=== PATIENT | female | born 1950 | race Caucasian/White ===

== ENCOUNTER → 2016-11-15 | Outpatient (CLI) | payer OTHER ==
--- NOTE | 2016-11-15 14:51 | DIAGNOSTIC IMAGING REPORT ---
LEFT KNEE 2 VIEWS CLINICAL HISTORY: Left knee pain COMPARISON: None. DISCUSSION: No acute fractures are visualized. There are moderate osteoarthritic changes. There are dorsal patellar spurs. IMPRESSION: 3 compartment osteoarthritic change. No acute fractures. No destructive lesions are visualized. Electronically signed by: Chip Ling M.D. 11/15/2016 2:50 PM Dictated Date/Time: 11/15/2016 2:49 PM
--- NOTE | 2016-11-15 14:53 | DIAGNOSTIC IMAGING REPORT ---
RIGHT KNEE 2 VIEWS CLINICAL HISTORY: Right knee pain COMPARISON: None. DISCUSSION: There are moderate osteoarthritic changes. There are small dorsal patellar spurs. There is a small joint effusion. There are no acute fractures. No destructive lesions are evident. IMPRESSION: 3 compartment osteoarthritic change. Small joint effusion. No acute fractures. Electronically signed by: Chip Ling M.D. 11/15/2016 2:52 PM Dictated Date/Time: 11/15/2016 2:51 PM
== END | disposition home or self-care (01) ==
LOC: C.RAD1850 14:34
PROVIDERS: ATTEND Family Medicine
DX: M25.561 Pain in right knee (principal)

== ENCOUNTER → 2017-06-10 | Outpatient (CLI) | payer OTHER ==
--- NOTE | 2017-06-10 10:37 | DIAGNOSTIC IMAGING REPORT ---
LEFT HEEL 2 VIEWS CLINICAL HISTORY: Left heel pain. FINDINGS: AP and lateral views of the left heel are obtained. No prior studies are available for comparison at the time of dictation. The skeletal structures are osteopenic. No calcaneal fracture is seen. The ankle joint is grossly intact. A large dorsal calcaneal enthesophyte is observed. There is a tiny plantar calcaneal enthesophyte. Mild soft tissue thickening suggested along the course of the Achilles tendon. IMPRESSION: 1. Osteopenia with no acute bony abnormality identified in the left heel. 2. There is a large dorsal calcaneal enthesophyte. Mild thickening is suggested along the course of the Achilles tendon. Correlate clinically for evidence of Achilles paratenonitis. 3. There is a tiny plantar calcaneal enthesophyte. Electronically signed by: Stone Mejia M.D. 06/10/2017 10:36 AM Dictated Date/Time: 06/10/2017 10:34 AM
== END | disposition home or self-care (01) ==
LOC: C.RAD1850 10:22
PROVIDERS: ATTEND Physician Assistant
DX: M79.672 Pain in left foot (principal); M85.872 Other specified disorders of bone density and structure, left ankle and foot

== ENCOUNTER 2018-12-26 09:44 | Inpatient (IN) ==
--- NOTE | 2018-12-08 10:56 | Anesthesiology Consultation ---
Date of Service December 08, 2018 Assessment & Plan (1) Encounter for pre-operative examination: Chart Review Chart Review: Acceptable Risk for Surgery and Patient seen in Pre Admission Testing Teaching & Discussion Pre-Anesthesia Teaching/Discussion Notes: Instructed NPO after midnight before surgery,except medications with 15 cc of water. Medication instructions provided according to the PAT guidelines. History Surgery Operation Date: 12/26/18 12:30 Proposed Procedures p Right Total Knee Replacement - Tod Burden MD Height/Weight Height: 5 ft 6 in Weight: 98.7 kg Allergies Allergy/AdvReac Type Severity Reaction Status Date / Time sulfamethoxazole Allergy Intermediate Hives Verified 12/08/18 08:01 [From Bactrim] trimethoprim [From Bactrim] Allergy Intermediate Hives Verified 12/08/18 08:01 Medications Home Medications Medication Instructions Recorded Confirmed Last Taken atorvastatin [Lipitor] 40 mg PO HS 12/08/18 12/08/18 Unknown cholecalciferol (vitamin D3) 5,000 unit PO QAM 12/08/18 12/08/18 Unknown [Vitamin D3] dexlansoprazole [Dexilant] 60 mg PO QAM 12/08/18 12/08/18 Unknown enalapril maleate 10 mg PO QAM 12/08/18 12/08/18 Unknown meloxicam 15 mg PO QAM 12/08/18 12/08/18 Unknown ranitidine HCl 300 mg PO HS 12/08/18 12/08/18 Unknown sertraline 100 mg PO HS 12/08/18 12/08/18 Unknown Past Medical History Medical History Depression Endometriosis GERD (gastroesophageal reflux disease) CONTROLLED Hyperlipidemia Hypertension Obesity Osteoarthritis Sleep apnea CPAP Past Family History Family History Mother Family history of diabetes mellitus Past Surgical History Surgical History History of bilateral tubal ligation History of colonoscopy History of dilatation and curettage History of esophagogastroduodenoscopy (EGD) History of laparoscopy History of total abdominal hysterectomy and bilateral salpingo-oophorectomy Past Anesthesia History No Hx of Anesthesia Complications and No Family Hx of Anesthesia Complications History of PONV No Motion Sickness Screening History of Motion Sickness: Yes (RARE) Social History Smoking Status: Never smoker Do You Dip or Chew Tobacco: No Hx Alcohol Use: No Hx Substance Use: No substance use type: does not use Exercise / Class Metabolic Activity II 4-5 Yardwork/Stairs/Walk up hill Review of Systems Patient denies chest pain, shortness of breath, dyspnea on exertion, cough, wheezing, palpitations. Physical Exam Vital Signs VITALS B 150/83P P 71 TEMP 98.3 SP02 96%RA RESP 16 PHYSICAL Full neck and c-spine range of motion. Full TMJ range of motion. TMD 3 finger breaths Mallampati Score 2 Dentition: intact, crowns on molars Lungs: clear throughout to auscultation Cardiac: regular rate and rhythm, I/ systolic in LUSB Spine: normal Carotid arteries: negative bruit Extremities: no edema Testing Electrocardiogram Date: 12/08/18 Findings: + NSR @ (65) Chest X-Ray Date: 12/08/18 Findings: + NAD Laboratory Results 12/08/18 11:12 12/08/18 11:11 Blood Type A Negative 12/08/18 11:12 Antibody Screen NEGATIVE 12/08/18 11:12 PT 10.3 Seconds (9.0-12.0) 12/08/18 11:12 INR 1.0 (0.9-1.1) 12/08/18 11:12 APTT 23.9 Seconds (21.0-31.0) 12/08/18 11:12
--- NOTE | 2018-12-08 11:08 | PAT Medication Instructions ---
Medication Instructions Date of Service December 08, 2018 Home Medications atorvastatin [Lipitor] 40 mg PO HS cholecalciferol (vitamin D3) 5,000 unit PO QAM dexlansoprazole [Dexilant] 60 mg PO QAM enalapril maleate 10 mg PO QAM meloxicam 15 mg PO QAM ranitidine HCl 300 mg PO HS sertraline 100 mg PO HS ASK your surgeon for instructions meloxicam 15 mg PO QAM DO NOT take the morning of surgery cholecalciferol (vitamin D3) 5,000 unit PO QAM enalapril maleate 10 mg PO QAM Take morning of surgery With a small sip of water, OTHERWISE NOTHING TO EAT OR DRINK AFTER MIDNIGHT: dexlansoprazole [Dexilant] 60 mg PO QAM Take evening before surgery atorvastatin [Lipitor] 40 mg PO HS ranitidine HCl 300 mg PO HS sertraline 100 mg PO HS Other Notes If you have any questions please call us at [phone] or [phone] or [phone] or [phone]
--- NOTE | 2018-12-08 11:29 | XRay Report ---
XR chest Pre-admission PA/Lat CLINICAL HISTORY: pat preoperative evaluation COMPARISON STUDY: No previous studies for comparison. FINDINGS: The bones soft tissues and hemidiaphragms are normal. The cardiomediastinal silhouette is n ormal. The lungs are clear. The pulmonary vasculature is normal. IMPRESSION: Negative chest. The above report was generated using voice recognition software. It may contain grammatical, syntax or spelling errors. Electronically signed by: Ezra Mejia M.D. 12/08/2018 11:28 AM
[2018-12-08 12:22] LABS: Basophils # (auto) 0.01 K/uL (0-0.2); Basophils % (auto) 0.2 %; Eosinophils # (auto) 0.07 K/uL (0-0.5); Eosinophils % (auto) 1.3 %; Hematocrit (blood only) 35.6 % (37-47); Hemoglobin 11.6 g/dL (12.0-16.0); Immature Granulocytes # (auto) 0.01 K/uL (0.00-0.02); Immature Granulocytes % (auto) 0.2 %; Lymphocytes # (auto) 1.57 K/uL (1.2-3.4); Lymphocytes % (auto) 28.4 %; Mean Corpuscular Hgb Conc 32.6 g/dL (32-36); Mean Corpuscular Volume 82.2 fL (80-100); Mean Platelet Volume 9.7 fL (7.4-10.4); Monocytes # (auto) 0.52 K/uL (0.11-0.59); Monocytes % (auto) 9.4 %; Neutrophils # (auto) 3.34 K/uL (1.4-6.5); Neutrophils % (auto) 60.5 %; Platelet Count 238 K/uL (130-400); RDW Coefficient of Variation 15.2 % (11.5-14.5); RDW Standard Deviation 45.7 fL (36.4-46.3); Red Blood Count 4.33 M/uL (4.2-5.4); White Blood Count 5.52 K/uL (4.8-10.8)
[2018-12-08 12:28] LABS: BUN Creatinine Ratio 21.6 (10-20); Blood Urea Nitrogen 19 mg/dl (7-18); C Reactive Protein < 0.29 mg/dl (0-0.29); Calcium 9.5 mg/dl (8.5-10.1); Carbon Dioxide 28 mmol/L (21-32); Chloride 106 mmol/L (98-107); Creatinine Clr Calc Pharmacy 74.4 ml/min; Est GFR (African American) 79.9; Est GFR (Non-African American) 68.9; Glucose 83 mg/dl (70-99); Potassium 4.6 mmol/L (3.5-5.1); Sodium 138 mmol/L (136-145)
[2018-12-08 12:34] LABS: Partial Thromboplastin Ratio 0.9; Partial Thromboplastin Time 23.9 Seconds (21.0-31.0); Prothrombin Time 10.3 Seconds (9.0-12.0)
--- NOTE | 2018-12-23 10:15 | History and Physical Report ---
DATE OF ADMISSION: 12/26/2018 CHIEF COMPLAINT: Bilateral knee pain, right side greater than left. HISTORY OF PRESENT ILLNESS: The patient is a 68-year-old female who presents for surgical treatment of her knees. She has got a long history of bilateral knee pain and discomfort, followed by my partner Dr. Costello. She describes a lot of pain and stiffness when she first gets up. She is able to loosen things up a little bit as she walks some, but then develops more pain as she walks more and more. She has been through extensive conservative treatment. She has had steroid shots that helped a little bit, but nothing long lasting. She has tried different medicines including meloxicam, which provided minimal relief. Right side is a bit worse than the left. It is global pain. Once she is active, she pays for the next several days as difficulty walking. She now would like to proceed with surgical treatment. PAST MEDICAL HISTORY: 1. Hypertension. 2. Elevated cholesterol. 3. Sleep apnea with CPAP machine. 4. Gastroesophageal reflux disease. 5. Mild obesity, BMI of 35. PAST SURGICAL HISTORY: None. ALLERGIES: BACTRIM/SULFA. CURRENT MEDICINES: Include: 1. Enalapril 10 mg a day. 2. Dexilant 60 mg. 3. Atorvastatin 40 mg. 4. Ranitidine 300 mg a day. 5. Sertraline 100 mg a day. 6. Meloxicam. SOCIAL HISTORY: A 68-year-old white female. She is . Lives in [place]. Does not smoke. FAMILY HISTORY: Noncontributory. REVIEW OF HISTORY: Negative for diabetes, neurologic problems, vascular problems or bleeding disorders. No chest pain or shortness of breath. No evidence of DVT or PE. PHYSICAL EXAMINATION: GENERAL: Reveals a healthy, pleasant middle-aged female, but looks to be in pretty good health. HEENT: Benign. NECK: Supple. No lymphadenopathy. LUNGS: Clear to auscultation. HEART: Has a regular rate and rhythm. ABDOMEN: Soft, nontender, nondistended. EXTREMITIES: Grossly neurovascularly intact except as follows: Examination of both knees reveals patient walks independently. Walks with a bit of a waddling gait. She has got varus alignment to both knees. Really walks slow when she first gets started. Examination of the right knee reveals slight varus deformity. Moderate soft tissue envelope. She is tender over the medial joint line. Small knee effusion. Range of motion 5-125. No instability. No pain with hip motion. She is neurologically intact. Examination of left knee reveals slight varus alignment. She has got bony hypertrophy medially and tenderness medially. Small knee effusion. Range of motion 0-125. No instability. No pain with hip motion. X-RAYS: X-rays of both knees were reviewed. Shows advanced bilateral knee DJD. The right side is a bit worse than the left. This has progressed significantly over the past year. She has got complete loss of her medial joint space. She has got osteophytes of the medial femoral condyle and medial tibial plateau. She does have some tibial femoral subluxation. ASSESSMENT: A 68-year-old white female with advanced bilateral knee degenerative joint disease, right side a bit worse than the left. She has failed conservative treatment and would like to consider surgery. PLAN: We are going to take her to the operating room and do a right total knee replacement. The risks and benefits of this procedure were explained to the patient including but not limited to DVT, PE, , infection, neurological injury, vascular injury, bleeding problem, pain, limited range of motion, stiffness, failure to relieve symptoms, incomplete relief of symptoms, need for further surgery in future, fracture, leg length inequality, nerve palsy, etc. The patient understands and desires to proceed. Informed consent was obtained. We did talk about holding her enalapril the morning of surgery and the Mobic 10 days preop. She is planning to be discharged home using [facility] home health program.
[~2018-12-26 09:44] MED LIST: ACETAMINOPHEN 500 MG TAB PO SCH; BUPIVACAINE 0.5 % 5 MG/1 ML PF 10ML VIAL ONE; BUPIVACAINE LIPOSOME/PF 266 MG, BUPIVACAINE/EPINEPHRINE 50 ML, SODIUM CHLORIDE 0.9% 30 ... INFIL SCH; CEFAZOLIN 2000MG 2,000 MG/15 ML SYR IV SCH; FAMOTIDINE 20 MG TAB PO SCH; GABAPENTIN 300 MG PO SCH; LIDOCAINE HCL 2% 2 ML VIAL/AMP(20MG/ML) INFIL ONE; LR 500ML BOLUS, THEN 15ML/HR IV SCH; LR 60ML/HR IV SCH; METOCLOPRAMIDE HCL 10 MG TABLET PO SCH; MIDAZOLAM HCL 1 MG/ML 2ML VIAL ONE; PHENYLEPHRINE 100MCG/ML 5ML SYR ONE; PROPOFOL IV EMULSION 10 MG/ML 20 ML VIAL IV ONE; ROPIVACAINE 0.5% 5 MG/ML 30 ML VIAL ONE; SCOPOLAMINE 1.5 MG TDSY TD SCH; TRANEXAMIC ACID 1,000 MG **IV Pre-op IV SCH; ePHEDrine sulfate 50 MG/ML AMP ONE; fentaNYL citrate 100 MCG/2 ML VIAL ONE
--- NOTE | 2018-12-26 10:26 | History & Physical Bridge Note ---
Date of Service December 26, 2018 History & Physical Bridge Note I have examined the patient, reviewed the History & Physical and in the interval since the performance of the History & Physical I have noted the following changes of clinical significance: no changes noted
[2018-12-26] MEDS ORDERED: ePHEDrine sulfate 50 MG/ML AMP IV PRN (11:31)
[2018-12-26] MEDS ORDERED: ATROPINE SULFATE 0.1 MG/ML 10ML SYR IV PRN (11:31)
[2018-12-26] MEDS ORDERED: BUPIVACAINE LIPOSOME 1.3% 266 MG/20 ML VIAL ONE (11:44)
[2018-12-26] MEDS ORDERED: EPINEPHrine INJ 1 MG/ML AMP ONE (11:44)
[2018-12-26] MEDS ORDERED: BACITRACIN INJ 50,000 UNIT VIAL ONE (11:44)
[2018-12-26] MEDS ORDERED: BUPIVACAINE 0.25% 30 ML VIAL ONE (11:44)
[2018-12-26] MEDS ORDERED: SODIUM CHLORIDE 0.9% PF 50 ML VIAL ONE (11:44)
[2018-12-26] MEDS ORDERED: PROPOFOL IV EMULSION 10 MG/ML 20 ML VIAL IV ONE (12:46)
--- NOTE | 2018-12-26 14:00 | Post Operative Brief Note ---
Immediate Post Op Note v1 Date of Surgery December 26, 2018 Pre & Post Diagnosis Operation Date: 12/26/18 12:30 Pre-Op Diagnosis: Right Knee Advanced Degenerative Joint Disease Post-Op Diagnosis: Right Knee Advanced Degenerative Joint Disease Procedure Operation Date: 12/26/18 12:30 Actual Procedures p Right Total Knee Arthroplasty(Right) - Tod Burden MD Surgeon Tod Burden MD Patient Care Technician Instructor Franco, PAC Estimated Blood Loss 50 Findings Consistent with Post-Op Diagnosis Fluids 1700 cc Specimens Right Knee Drains Rivera Catheter (A 16 [place] rivera catheter was inserted by Dianna Llanos RN, without difficulty, clear yellow urine obtained, output to be monitored by Anesthesia.) Anesthesia Type Spinal MAC Complications none Disposition Accompanied Patient To Recovery: No Disposition: Recovery Room
--- NOTE | 2018-12-26 14:40 | XRay Report ---
XR knee RT 2V routine CLINICAL HISTORY: Surgical Post Op COMPARISON: November 15, 2016 DISCUSSION: There are postsurgical changes of a total right knee arthroplasty and patellar resurfacin g. The femoral tibial components appear well seated. Overlying skin yvrose are evident. There is air within the soft tissues consistent with recent surgery. IMPRESSION: Postsurgical changes of a total right knee arthroplasty. Electronically signed by: Chip Ling M.D. 12/26/2018 2:39 PM
--- NOTE | 2018-12-26 14:47 | Anesthesiology Progress Note ---
Date of Service December 26, 2018 Anesthesia Post Procedure Vital Signs Vital Signs: Temp Pulse Resp BP Pulse Ox 12/26/18 14:35 58 L 14 138/65 100 12/26/18 14:25 56 L 16 144/63 H 100 12/26/18 14:15 61 16 135/60 100 12/26/18 14:06 36.0 C L 61 16 132/58 L 98 12/26/18 10:10 36.8 C 67 20 167/57 H 93 Pain Intensity Right Knee: Pain Intensity: 0 Notes Mental Status: alert / awake / arousable and participated in evaluation Patient Amnestic to Procedure: Yes Nausea / Vomiting: adequately controlled Pain: adequately controlled Airway Patency, RR, SpO2: stable & adequate BP & HR: stable & adequate Hydration State: stable & adequate Neuraxial Anesthesia: was administered and sensory block is resolving Anesthetic Complications: no major complications apparent
[2018-12-26] MEDS ORDERED: BISACODYL 10 MG SUPP PR PRN (16:05)
[2018-12-26] MEDS ORDERED: ONDANSETRON INJ 2 MG/ML 2 ML VIAL IV PRN (16:05)
[2018-12-26] MEDS ORDERED: ALUMINUM/MAGNESIUM SUSP 30 ML UDC PO PRN (16:05)
[2018-12-26] MEDS ORDERED: NALOXONE HCL 0.4 MG/1 ML VIAL/CARP IV PRN (16:05)
[2018-12-26] MEDS ORDERED: MAGNESIUM HYDROXIDE SUSP 30 ML UDC PO PRN (16:05)
[2018-12-26] MEDS ORDERED: HYDROmorphone INJ 0.5 MG/0.5 ML SYR IV PRN (16:05)
[2018-12-26] MEDS ORDERED: METOCLOPRAMIDE HCL INJ 5 MG/ML 2 ML VIAL IV PRN (16:05)
[2018-12-26] MEDS: CHECK SCOPOLAMINE PATCH PLACEMENT SCH (16:55)
[2018-12-26] MEDS: TRAMADOL HCL 50 MG TABLET PO PRN ×2 (16:59→21:12)
[2018-12-26] MEDS: SODIUM CHLORIDE 0.9% 1000ML 1,000 ML IV SCH (17:01)
[2018-12-26] MEDS: ASCORBIC ACID 500 MG TAB PO SCH (17:48)
[2018-12-26] MEDS: FERROUS GLUCONATE 324 MG TAB PO SCH (17:48)
[2018-12-26] MEDS: KETOROLAC TROMETHAMINE 15 MG/ML VIAL IV SCH (17:50)
[2018-12-26] MEDS ORDERED: TRANEXAMIC ACID 1,000 MG in 0.9 % SODIUM CHLORIDE 100 ML IV SCH (20:06)
[2018-12-26] MEDS: CEFAZOLIN 2000MG 2,000 MG/15 ML SYR IV SCH (20:10)
[2018-12-26] MEDS: DOCUSATE SODIUM 100 MG CAP PO SCH (20:12)
[2018-12-26] MEDS: ASPIRIN 81 MG ECTAB PO SCH (20:13)
[2018-12-26] MEDS: ATORVASTATIN 40 MG TAB PO SCH (20:13)
[2018-12-26] MEDS: SENNA 8.6 MG TAB PO SCH (20:14)
[2018-12-26] MEDS: SERTRALINE HCL 100 MG TABLET PO SCH (20:25)
[2018-12-26] MEDS: ACETAMINOPHEN 500 MG TAB PO SCH (21:13)
[2018-12-27] MEDS: CHECK SCOPOLAMINE PATCH PLACEMENT SCH (00:02)
[2018-12-27] MEDS: KETOROLAC TROMETHAMINE 15 MG/ML VIAL IV SCH ×4 (00:03→17:40)
--- NOTE | 2018-12-27 01:31 | Operative Report ---
DATE OF OPERATION: 12/26/2018 SURGEON: Tod Burden MD [employer] SUPERVISOR: FELIBERTO Landrum PREOPERATIVE DIAGNOSIS: Right knee degenerative joint disease. POSTOPERATIVE DIAGNOSIS: Right knee degenerative joint disease.. PROCEDURE PERFORMED: Right cemented posterior stabilized total knee arthroplasty. COMPLICATIONS: None. ESTIMATED BLOOD LOSS: 50 mL FLUID REPLACEMENT: 1700 mL crystalloid fluid replacement. TOURNIQUET TIME: 55 minutes. ANESTHESIA: Spinal with adductor canal block. DRAINS: None. SPECIMENS: Right knee sent for pathology. OPERATIVE INDICATIONS: The patient is a 68-year-old female who has had a very long history of bilateral knee pain and discomfort, right side greater than left. She has been through extensive conservative treatment over the years, became less successful particularly over the past year. X-rays show progressive knee arthritis. She would like to proceed with surgical treatment. OPERATIVE FINDINGS: Operative findings revealed extensive grade 4 changes in the medial and patellofemoral compartments. She had some spotty grade changes laterally. Moderate size joint effusion. Some slight tibial femoral subluxation. OPERATIVE IMPLANTS: Operative implants consisted of: 1. Biomet Vanguard size 65 right posterior stabilized femoral component. 2. Biomet size 67 tibial tray. 3. A 10 mm posterior stabilized polyethylene insert. 4. A 31 x 8 all-poly patella. OPERATIVE PROCEDURE: The patient taken to the operating room, identified and placed on the operative table in supine position. All contact areas were appropriately padded. IV antibiotics were provided by anesthesia team. A spinal anesthetic and adductor canal block had been provided in the holding area. Marie catheter was placed in sterile fashion. Right thigh tourniquet was then placed and the right lower extremity was then prepped and draped in usual sterile fashion. The right leg was elevated and exsanguinated with an Esmarch and tourniquet was placed at 300 mmHg. An anterior approach of the right knee was then performed through a longitudinal incision centered over the patella. Sharp dissection was carried through subcutaneous tissues down to the level of the extensor mechanism. Medial parapatellar arthrotomy incision was made. Some subperiosteal dissection was carried out medially. The fat pad was dissected beneath the patellar tendon. The lateral patellofemoral ligament was released. The patella was everted and knee was flexed. The osteophytes were taken off the distal femur. The ACL and PCL were then released from distal femur and the tibia subluxated anteriorly. The external tibial alignment jig was then placed in the anterior face of the tibia and adjusted 14 mm medially. Proximal tibial cut was made to remove about 2 mm of bone from most deficient aspect of the medial tibial plateau. The tibia was sized to a size 67. Attention was then drawn to the femur. Diskograms anchored sharp drill bit. Intramedullary canal was suctioned. A right 5 degree valgus cutting guide was placed. Distal femoral cutting block was pinned in place. Distal femoral cut was made to take an additional 3 mm of bone off the distal femur. Femur was then sized to a size 65. We did downsize this slightly. The AP cutting block, pinned parallel to the epicondylar axis, which was 4 degrees of external rotation. The anterior cut, anterior chamfer cut, posterior cut, posterior chamfer cuts were made. Box cutting guide was placed and adjusted slight lateral and the box cut was made. The knee was flexed. The remnants of medial and lateral menisci were excised. The osteophytes were taken off the posterior aspect of the femur. A trial femoral component was placed. Tibial tray was pinned in maximum external rotation and drilled and stem punch were used to create defect in proximal tibia for the tibial tray. The knee was then trialed and a 10 mm insert fit most appropriately. Attention was then drawn to the patella. The patella was cleaned of all soft tissues. Patella thickness measured 22 mm in thickness and was cut down to 14. It was sized to a size 31 patella. Lug holes were drilled for 31 patella. Lateral osteophyte was removed. Patella button was placed. Knee was taken through range of motion, patella tracked nicely with no thumbs test. Attention was then drawn toward placement of permanent components. All trial components were removed. Bone plug was placed in the distal femur to limit blood loss. A double batch of Palacos G cement was mixed. A Biomet Vanguard size 65 right posterior stabilized femoral component, size 67 tibial tray, a 10 mm posterior stabilized polyethylene insert, and 31 x 8 all-poly patella then cemented in place. Knee was brought out into full extension until cement hardened. A final cement check was then performed. Pericapsular tissues were injected with a total of 100 mL of combination of 20 mL of Exparel, 30 mL of normal saline, 50 mL of 0.25% Marcaine with epinephrine. The patient did receive 1 g of tranexamic acid. The tourniquet was then let down for a tourniquet time of 55 minutes. Hemostasis was assured with use of electrocautery. Extensor mechanism was then closed with a combination of #1 PDS suture and #1 Vicryl suture in a [id number] fashion. Extensor mechanism was checked and found to be intact. Subcutaneous tissues were then closed with #2 Dexon suture in buried interrupted fashion. Skin was closed with skin yvrose. Leg was then cleaned and dried and a sterile dressing with Xeroform, 4 x 4s, sterile cast padding and [place] bandage were applied. The patient was then transferred to the recovery room in stable condition. The patient tolerated the procedure well with no complication. All needle and sponge counts were correct at the end of the operation. I attest to the content of the Intraoperative Record and any orders documented therein. Any exception s are noted below.
[2018-12-27] MEDS: TRAMADOL HCL 50 MG TABLET PO PRN ×5 (03:36→21:27)
[2018-12-27] MEDS: SODIUM CHLORIDE 0.9% 1000ML 1,000 ML IV SCH (03:37)
[2018-12-27] MEDS: CEFAZOLIN 2000MG 2,000 MG/15 ML SYR IV SCH (03:40)
[2018-12-27] MEDS: ACETAMINOPHEN 500 MG TAB PO SCH ×3 (06:20→21:27)
[2018-12-27 06:52] LABS: Hematocrit (blood only) 30.7 % (37-47); Mean Corpuscular Hgb Conc 32.6 g/dL (32-36); Mean Platelet Volume 9.5 fL (7.4-10.4); Platelet Count 178 K/uL (130-400); RDW Coefficient of Variation 14.8 % (11.5-14.5); RDW Standard Deviation 43.8 fL (36.4-46.3); Red Blood Count 3.79 M/uL (4.2-5.4); White Blood Count 6.45 K/uL (4.8-10.8)
[2018-12-27 07:13] LABS: BUN Creatinine Ratio 15.8 (10-20); Calcium 8.3 mg/dl (8.5-10.1); Est GFR (African American) 78.8; Potassium 3.7 mmol/L (3.5-5.1)
--- NOTE | 2018-12-27 08:28 | Anesthesiology Progress Note ---
Date of Service December 27, 2018 Anesthesia Post Procedure Vital Signs Vital Signs: Temp Pulse Pulse Pulse Resp BP BP 12/27/18 07:04 36.6 C 63 16 126/70 12/27/18 02:53 36.8 C 51 L 16 121/70 12/26/18 23:40 36.9 C 60 16 118/56 L 12/26/18 19:04 36.8 C 68 18 145/70 H 12/26/18 17:57 36.7 C 62 18 142/79 H 12/26/18 17:03 36.4 C L 62 18 165/82 H 12/26/18 16:27 36.8 C 63 18 145/74 H 12/26/18 15:30 55 L 20 154/56 H 12/26/18 15:15 52 L 17 139/63 12/26/18 15:05 55 L 12 140/60 12/26/18 14:55 36.4 C L 55 L 14 143/74 H 12/26/18 14:45 56 L 19 135/65 12/26/18 14:35 58 L 14 138/65 12/26/18 14:25 56 L 16 144/63 H 12/26/18 14:15 61 16 135/60 12/26/18 14:06 36.0 C L 61 16 132/58 L 12/26/18 10:10 36.8 C 67 20 167/57 H Pulse Ox 12/27/18 07:04 95 12/27/18 02:53 96 12/26/18 23:40 95 12/26/18 19:04 98 12/26/18 17:57 100 12/26/18 17:03 100 12/26/18 16:27 100 12/26/18 15:30 99 12/26/18 15:15 99 12/26/18 15:05 99 12/26/18 14:55 99 12/26/18 14:45 99 12/26/18 14:35 100 12/26/18 14:25 100 12/26/18 14:15 100 12/26/18 14:06 98 12/26/18 10:10 93 Pain Intensity Right Knee: Pain Intensity: 4 Notes Mental Status: alert / awake / arousable and participated in evaluation Nausea / Vomiting: adequately controlled Pain: adequately controlled Airway Patency, RR, SpO2: stable & adequate BP & HR: stable & adequate Hydration State: stable & adequate Neuraxial Anesthesia: sensory block resolved Anesthetic Complications: Pt Satisfied with anesthetic care
[2018-12-27] MEDS: DOCUSATE SODIUM 100 MG CAP PO SCH ×2 (08:43→21:26)
[2018-12-27] MEDS: ASCORBIC ACID 500 MG TAB PO SCH ×2 (08:43→17:40)
[2018-12-27] MEDS: FERROUS GLUCONATE 324 MG TAB PO SCH ×2 (08:43→17:40)
[2018-12-27] MEDS: MULTIVITAMIN TAB PO SCH (08:44)
[2018-12-27] MEDS: ASPIRIN 81 MG ECTAB PO SCH ×2 (08:44→21:26)
[2018-12-27] MEDS: PANTOprazole 40 MG TAB PO SCH (08:44)
[2018-12-27] MEDS: CHOLECALCIFEROL 1,000 UNITS TAB PO SCH (08:44)
[2018-12-27] MEDS: ENALAPRIL MALEATE 10 MG TAB PO SCH (08:46)
--- NOTE | 2018-12-27 11:33 | Progress Note ---
DATE: 12/27/2018 SUBJECTIVE: 68-year-old white female postop day 1 from right knee replacement. She is doing well. Therapy went well. No chest pain or shortness of breath. Not feeling dizzy or lightheaded. Pain is controlled. OBJECTIVE: VITAL SIGNS: Temperature is 36.5. Vital signs stable. PHYSICAL EXAMINATION: GENERAL: Reveals a pleasant elderly female. She is sitting up in her bedside chair, looks comfortable. LUNGS: Clear to auscultation. HEART: Regular rate and rhythm. ABDOMEN: Soft, nontender, nondistended. EXTREMITIES: Grossly neurovascularly intact except as follows: Examination of the right lower extremity reveals the dressing to be clean, dry and intact. She can dorsiflex and plantarflex her foot appropriately. She is neurologically intact. She has brisk refill. LABORATORY DATA: Hemoglobin 10.0. Hematocrit 30.7. Electrolytes are stable. ASSESSMENT: 68-year-old white female postop day 1 from right knee replacement, doing well. Pain is controlled. She is neurologically intact. She is anemic, but without symptoms. PLAN: 1. DVT prophylaxis including thigh-high TEDs, SCDs, and aspirin twice a day. 2. PT/OT. Weight bear as tolerated. Right total knee protocol. 3. Pain control, doing well with current pain regimen. 4. Anemia. Currently, asymptomatic. Will continue iron supplementation. 5. Disposition: She is planning to be discharged home with some home health once adequately recovered.
[2018-12-27] MEDS: ATORVASTATIN 40 MG TAB PO SCH (21:26)
[2018-12-27] MEDS: SENNA 8.6 MG TAB PO SCH (21:26)
[2018-12-27] MEDS: SERTRALINE HCL 100 MG TABLET PO SCH (21:27)
[2018-12-28] MEDS: KETOROLAC TROMETHAMINE 15 MG/ML VIAL IV SCH ×3 (00:24→12:02)
[2018-12-28] MEDS: ACETAMINOPHEN 500 MG TAB PO SCH (04:55)
--- NOTE | 2018-12-28 07:33 | Progress Note ---
DATE: 12/28/2018 SUBJECTIVE: A 68-year-old white female postop day 2 from right knee replacement. She is doing pretty well. Pain has been controlled. Therapy is going okay. No chest pain or shortness of breath. Not feeling dizzy or lightheaded. OBJECTIVE: VITAL SIGNS: Temperature 36.8. Vital signs stable. PHYSICAL EXAMINATION: GENERAL: Reveals a pleasant elderly female. She is sitting up in bed this morning. Looks pretty comfortable. EXTREMITIES: Examination of the right leg reveals the dressing to be in place. Just a little bit of bloody drainage superiorly. Calf is soft and supple. She can dorsiflex and plantarflex her foot appropriately. She is neurologically intact. ASSESSMENT: A 68-year-old white female postop day 2 from right knee replacement. She is doing well. Pain is controlled. She is anemic, but without symptoms. PLAN: 1. DVT prophylaxis including thigh-high TEDs, SCDs, and aspirin twice a day. 2. PT/OT. Weight bear as tolerated. Right total knee protocol. 3. Pain control, doing well with current pain regimen. 4. Disposition: Plan to discharge to home with home health later today.
[2018-12-28] MEDS: TRAMADOL HCL 50 MG TABLET PO PRN (08:37)
[2018-12-28] MEDS: FERROUS GLUCONATE 324 MG TAB PO SCH (08:39)
[2018-12-28] MEDS: MULTIVITAMIN TAB PO SCH (08:39)
[2018-12-28] MEDS: DOCUSATE SODIUM 100 MG CAP PO SCH (08:40)
[2018-12-28] MEDS: ASCORBIC ACID 500 MG TAB PO SCH (08:40)
[2018-12-28] MEDS: PANTOprazole 40 MG TAB PO SCH (08:40)
[2018-12-28] MEDS: ASPIRIN 81 MG ECTAB PO SCH (08:41)
[2018-12-28] MEDS: CHOLECALCIFEROL 1,000 UNITS TAB PO SCH (08:41)
[2018-12-28] MEDS: ENALAPRIL MALEATE 10 MG TAB PO SCH (08:43)
--- NOTE | 2019-01-03 14:49 | Discharge Summary ---
ADMITTING PHYSICIAN AND SURGEON: Dr. Tod Burden. ADMITTING DIAGNOSIS: Right knee degenerative joint disease. SURGERY PERFORMED: Right total knee arthroplasty. SECONDARY DIAGNOSES: Hypertension, elevated cholesterol, sleep apnea, gastroesophageal reflux disease, mild obesity. CONSULTS: None obtained. HISTORY AND PHYSICAL EXAMINATION: Well documented in the patient's chart. HOSPITAL COURSE: The patient was admitted on 12/26/2018 underwent total knee arthroplasty, tolerated the procedure well. There were no complications. She was transferred to the PACU postoperatively and later to the orthopedic for further care. She was given Ancef for antibiotic prophylaxis, KALEE stockings, SCDs and aspirin for DVT prophylaxis. Hemoglobin, hematocrit and vital signs were monitored during her hospital stay and remained stable. She developed some mild postoperative anemia, did not require any blood transfusion. She was given an iron supplement. There were no complications. By postoperative day 2, she was tolerating a regular diet, pain was controlled with oral pain medicine. She was participating in physical therapy. On postop day 2, she was discharged home, set up with home health services, given printed discharge instructions including new prescriptions for extra strength Tylenol, aspirin, iron supplement and tramadol. Continue her home medicines. Continue physical therapy, weightbearing as tolerated, KALEE stockings, total hip precautions. Followup in approximately 2 weeks postoperatively or sooner if there are any problems or concerns.
== END 2018-12-28 12:24 | disposition home health service (06) | DRG 470 ==
LOC: ASU 09:44 → 3E 14:09

== ENCOUNTER 2021-08-09 13:43 | Inpatient (IN) ==
[2021-08-09] MEDS ORDERED: SODIUM CHLORIDE 0.9% 1000ML 1,000 ML IV STA (14:14)
[2021-08-09] MEDS ORDERED: dexAMETHasone**PF** 10 MG/ML VIAL IV ONE (14:14)
[2021-08-09 14:45] LABS: Basophils # (auto) 0.01 K/uL (0-0.2); Basophils % (auto) 0.2 %; Eosinophils # (auto) 0.04 K/uL (0-0.5); Eosinophils % (auto) 0.8 %; Hematocrit (blood only) 30.6 % (37-47); Hemoglobin 10.2 g/dL (12.0-16.0); Immature Granulocytes # (auto) 0.06 K/uL (0.00-0.02); Immature Granulocytes % (auto) 1.2 %; Lymphocytes # (auto) 0.38 K/uL (1.2-3.4); Lymphocytes % (auto) 7.5 %; Mean Corpuscular Hemoglobin 27.1 pg (25-34); Mean Corpuscular Hgb Conc 33.3 g/dL (32-36); Mean Corpuscular Volume 81.2 fL (80-100); Monocytes # (auto) 0.55 K/uL (0.11-0.59); Monocytes % (auto) 10.9 %; Neutrophils # (auto) 4.02 K/uL (1.4-6.5); Neutrophils % (auto) 79.4 %; Platelet Count 379 K/uL (130-400); RDW Coefficient of Variation 14.8 % (11.5-14.5); RDW Standard Deviation 44.1 fL (36.4-46.3); Red Blood Count 3.77 M/uL (4.2-5.4); White Blood Count 5.06 K/uL (4.8-10.8)
[2021-08-09] MEDS ORDERED: ONDANSETRON INJ 2 MG/ML 2 ML VIAL IV STA (14:51)
[2021-08-09] MEDS ORDERED: SODIUM CHLORIDE 0.9% 1000ML 500 ML IV ONE (14:51)
[2021-08-09] MEDS ORDERED: ACETAMINOPHEN 1000 MG/100 ML IV IV STA (14:52)
[2021-08-09 15:01] LABS: Alanine Aminotransferase 25 U/L (12-78); Albumin Level 2.1 gm/dl (3.4-5.0); Aspartate Aminotransferase 33 U/L (15-37); BUN Creatinine Ratio 26.8 (10-20); Blood Urea Nitrogen 15 mg/dl (7-18); Carbon Dioxide 26 mmol/L (21-32); Chloride 95 mmol/L (98-107); Est GFR (African American) 110.3 ml/min; Est GFR (Non-African American) 95.1 ml/min; Glucose 142 mg/dl (70-99); Sodium 132 mmol/L (136-145)
[2021-08-09 15:06] LABS: Albumin Globulin Ratio 0.5 (0.9-2); Alkaline Phosphatase 111 U/L (45-117); Bilirubin,Total 0.5 mg/dl (0.2-1); Globulin 4.4 gm/dl (2.5-4.0); Total Protein 6.5 gm/dl (6.4-8.2); Troponin I < 0.015 ng/ml (0-0.045)
--- NOTE | 2021-08-09 15:48 | XRay Report ---
XR chest 1V portable HISTORY: 70 years-old Female Fever acute cough with fever COMPARISON: Chest radiographs 12/08/2018 TECHNIQUE: Portable AP view the chest FINDINGS: Cardiac silhouette is mildly enlarged. Reticular interstitial opacities with right greater than left peripheral predominant airspace densities. No pneumothorax or large pleural effusion. No acute fractu re. IMPRESSION: Multifocal bilateral airspace opacities are suggestive of viral pneumonia. ACT 112: Negative or not required by law. The above report was generated using voice recognition software. It may contain grammatical, syntax o r spelling errors. Electronically signed by: Tavo Woods M.D. 08/09/2021 3:47 PM
[2021-08-09] MEDS ORDERED: POTASSIUM CHLORIDE / WTR 10 MEQ/100 ML PLCT IV ONE (15:55)
[2021-08-09] MEDS ORDERED: OPTIRAY 320 125ml IV ONE (17:33)
[2021-08-09 17:56] LABS: NT Pro B Type Natriuretic Pept 1299 pg/ml (0-900)
--- NOTE | 2021-08-09 18:03 | CT Scan Report ---
CT angio chest PE protocol CT DOSE: 499.81 mGy.cm HISTORY: 70 years-old Female with PE +covid, hypoxic. Acute shortness of breath with hypoxia. COVID Positive. TECHNIQUE: Multiple CTA images of the chest were obtained after the intravenous administration of 102 ml Optiray. Coronal and sagittal MIPS were obtained from the axial data set and were submitted for review. All measurements were obtained according to NASCET criteria. A dose lowering technique was u tilized adhering to the principles of ALARA. COMPARISON: Chest radiograph of same day FINDINGS: CTA: Mild cardiomegaly with trace pericardial effusion. There is no thoracic aortic aneurysm or dissection . Patency of the imaged great vessels. The segmental and subsegmental pulmonary arterial branches are suboptimally visualized secondary to respiratory motion artifact. No filling defects identified to s uggest thromboembolic disease. CT CHEST: No large thyroid nodule. Mildly enlarged mediastinal and hilar lymph nodes with subcarinal adenopathy measuring up to 12 mm. Small pleural effusions. No pneumothorax. Extensive subpleural predominant gr oundglass and consolidative opacities are noted within all lobes bilaterally. The central airways are patent. Hepatosplenomegaly with hepatic steatosis. Hypodensity of the caudate lobe is suggestive of fatty inf iltration. Indeterminate 9 mm hypodensity of the left hepatic lobe Indeterminate 1.5 cm lesion of the spleen on image 17 series 2. Moderate hiatal hernia with mid to distal esophageal wall thickening. U nremarkable soft tissues. No acute fracture. IMPRESSION: 1. No pulmonary emboli. 2. Extensive subpleural predominant groundglass and consolidative opacities compatible with viral pne umonia. 3. Small pleural effusions. 4. Hepatosplenomegaly with hepatic steatosis. 5. Moderate hiatal hernia. ACT 112: Negative or not required by law. The above report was generated using voice recognition software. It may contain grammatical, syntax o r spelling errors. Electronically signed by: Tavo Woods M.D. 08/09/2021 6:02 PM
[2021-08-09 18:48] LABS: Appearance Urine Clear (Clear); Bacteria Urine Automated Negative (Negative); Bilirubin Urine Negative (Negative); Blood Urine Negative (Negative); Cast Urine Automated 0 /lpf (0-5); Color Urine Yellow; Epithelial Cell Urine Auto >30 /lpf (0-5); Glucose Urine UA Negative (Negative); Ketones Urine Negative (Negative); Leukocyte Esterase Urine Negative (Negative); Nitrite Urine Negative (Negative); Protein Urine Trace (Negative); RBC Urine Automated 0-4 /hpf (0-4); Specific Gravity Urine 1.022 (1.000-1.030); Urobilinogen Urine Negative (Negative)
--- NOTE | 2021-08-09 19:10 | Emergency Department Note ---
Impression & Plan COVID-19, Pneumonia due to COVID-19 virus, Hypoxia, Acute hypokalemia ED Provider Note INFORMANT: Patient ED PROVIDER(S): Austen Garcia MD CHIEF COMPLAINT: Weakness PLAN: Disposition: Admitted Condition: Guarded Outpatient prescription management: none Referral: None MEDICAL DECISION MAKING: Patient presented because of weakness and Covid symptoms. She was positive. Chest x-ray was concerning for significant bilateral viral pneumonia. She was mildly hypokalemic and dehydrated. Patient was treated with Tylenol, steroids, Zofran, potassium, and normal saline. CT imaging revealed no evidence of thromboembolic disease. Patient did have significant viral pneumonia findings present. Patient responded well to supplemental oxygen on reassessment she was feeling better, albeit still dyspneic. She will need further management in the hospital. Consultation was made with Dr. Ashley of the [facility] service. Patient was evaluated in the ER for further management. Triage Nursing notes reviewed and agree them. Vital Signs: reviewed and remarkable for hypoxia Differential diagnosis: Viral syndrome, strep pharyngitis, tonsillitis, mononucleosis, retropharyngeal abscess, peritonsillar abscess, otitis media, sinusitis, bronchitis, pneumonia, as well as other pathologies. Diagnostics interpreted by me: ECG: Twelve-lead ECG reveals normal sinus rhythm at 83 bpm. Right bundle branch block. LVH. No ST elevation or depression. No PVCs. Cardiac Monitoring: Cardiac monitoring ordered by me: The patient was placed on continuous cardiac monitoring and observed. It revealed a normal sinus rhythm at 68beats per minute without ectopy or evidence of dysrhythmia. Imaging studies: Chest x-ray and CT scan as above. HPI: The patient is a 70 year old female who presents to the Emergency Room with complaints of weakness. This started 2 weeks ago and is worsening over the last few days. The patient also notes the following associated symptoms, shortness of breath, cough. Patient developed symptoms consistent with Covid 15 days ago. The patient has tried Tylenol for relieving factors. Current pain is rated as 0/10. Patient also has nausea. Noted some diarrhea and fever. Pt denies LOC, headache, chills, diaphoresis, visual changes, neck pain, chest pain, vomiting, abdominal pain, back pain, melena, hematochezia, urinary symptoms, numbness, lymphadenopathy, rash, or other complaints. ROS: See above HPI for pertinent positives & negatives. A total of 10 systems reviewed and were otherwise negative. PAST MEDICAL HISTORY:See Below , arthritis PAST SURGICAL HISTORY:See Below, knee replacement FAMILY HISTORY:See Below SOCIAL HISTORY:See Below, non-smoker HOME MEDICATIONS:See Below ALLERGIES:See Below VITALS:See Below PHYSICAL EXAMINATION: GENERAL: Awake, alert, dyspneic-appearing, in no distress HENT: Normocephalic, atraumatic. Oropharynx unremarkable. EYES: Normal conjunctiva. Sclera non-icteric. NECK: Inspection normal. Non-tender. Supple. No nuchal rigidity. FROM. No masses. RESPIRATORY: No wheezes. Scattered rales. Increased respiratory effort. CARDIAC: Normal rate. Normal rhythm. No murmurs. No rubs. Extremities warm and well perfused. Pulses equal. No JVD. GI: Soft, non-distended. No tenderness to palpation. No rebound or guarding. No masses. RECTAL: Deferred. MUSCULOSKELETAL: Atraumatic. Chest examination reveals no tenderness. The back is symmetrical on inspection without obvious abnormality. There is no CVA tenderness to palpation. No joint edema. LOWER EXTREMITIES: Calves are equal size bilaterally and non-tender. No edema. No discoloration. NEURO: Normal sensorium. No sensory or motor deficits noted. SKIN: No rash or jaundice noted. CRITICAL CARE: I have personally spent greater than 34 minutes of critical care time in the direct management of this patient. This includes bedside care, interpretation of diagnostic studies, and testing, discussion with consultants, patient, and family members, and other required patient management activities. These minutes are in excess of all separately billable procedures. Austen Garcia MD Past Med/Surg History Medical History (Updated 08/09/21 @ 22:39 by Refugio Decker MD) Depression Endometriosis GERD (gastroesophageal reflux disease) CONTROLLED Hyperlipidemia Hypertension Obesity Osteoarthritis Sleep apnea CPAP Surgical History History of bilateral tubal ligation History of colonoscopy History of dilatation and curettage History of esophagogastroduodenoscopy (EGD) History of laparoscopy History of total abdominal hysterectomy and bilateral salpingo-oophorectomy Family History Mother Family history of diabetes mellitus Hypertension Father Hearing loss Cancer Other No family history of adverse response to anesthesia No family history of bleeding disorder Social History Smoking Status: Never smoker Second Hand Exposure: No; Hx Alcohol Use: No Hx Substance Use: No Preferred Language: Andorran Communication Ability: Effective 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 Other Information That Helps Us Care for You: No Feels Safe at Home: Yes Safety Concerns: Feels Safe At This Time Assistive Devices: None Allergies Allergies Allergy/AdvReac Type Severity Reaction Status Date / Time sulfamethoxazole Allergy Intermediate Hives Verified 08/09/21 16:24 [From Bactrim] trimethoprim [From Bactrim] Allergy Intermediate Hives Verified 08/09/21 16:24 Home Meds Home Medications Medication Instructions Recorded Confirmed atorvastatin 40 mg tablet (Lipitor) 40 mg PO HS 12/08/18 08/09/21 cholecalciferol (vitamin D3) 125 5,000 unit PO QAM 12/08/18 08/09/21 mcg (5,000 unit) tablet (Vitamin D3) dexlansoprazole 60 mg 60 mg PO QAM 12/08/18 08/09/21 capsule,biphase delayed release (Dexilant) enalapril maleate 10 mg tablet 10 mg PO QAM 12/08/18 08/09/21 sertraline 100 mg tablet 100 mg PO HS 12/08/18 08/09/21 Previous Rx's Medication Instructions Recorded meloxicam 15 mg tablet 15 mg PO DAILY PRN #30 tab 02/13/20 Results & Data (ED) Vital Signs Vital Signs - 24 hr 08/09/21 14:07 08/09/21 16:23 08/09/21 17:19 Temperature 38.1 C H 36.9 C Temperature Source Oral Oral Pulse Rate 82 Pulse Rate [Finger] 73 66 Pulse Rhythm Regular Pulse Rhythm [Finger] Regular Pulse Strength Normal Pulse Strength [Finger] Normal Respiratory Rate 26 H 24 19 Respiratory Effort / Characteristics Non-Labored Non-Labored Spontaneous Respiratory Depth Normal Normal Respiratory Pattern Regular Blood Pressure 143/74 H Blood Pressure [Right Arm] 152/67 H 163/71 H Blood Pressure Mean 97 Blood Pressure Mean [Right Arm] 95 101 Blood Pressure Position Lying Blood Pressure Position [Right Arm] Lying Pulse Oximetry 81 L 95 94 Oxygen Delivery Method Nasal Cannula Nasal Cannula Nasal Cannula Oxygen Flow Rate 0 2 2 Sepsis Recent Fever Within 48 Hours No Sepsis New/Unexplained Change in Mental Status No Sepsis Action Taken by Nursing No Action Required Oxygen Flow Rate - Titration 5 Pulse Oximetry Post Tiitration 97 08/09/21 17:39 08/09/21 19:00 Temperature Temperature Source Pulse Rate Pulse Rate [Finger] 84 68 Pulse Rhythm Pulse Rhythm [Finger] Pulse Strength Pulse Strength [Finger] Respiratory Rate 24 16 Respiratory Effort / Characteristics Respiratory Depth Respiratory Pattern Blood Pressure Blood Pressure [Right Arm] 155/58 H 163/75 H Blood Pressure Mean Blood Pressure Mean [Right Arm] 90 104 Blood Pressure Position Blood Pressure Position [Right Arm] Lying Pulse Oximetry 95 97 Oxygen Delivery Method Nasal Cannula Nasal Cannula Oxygen Flow Rate 3 2 Sepsis Recent Fever Within 48 Hours Sepsis New/Unexplained Change in Mental Status Sepsis Action Taken by Nursing Oxygen Flow Rate - Titration Pulse Oximetry Post Tiitration Laboratory Data Result diagrams: 08/09/21 14:26 08/09/21 14:26 Lab Results 08/09/21 08/09/21 08/09/21 Range/Units 14:26 14:26 14:26 WBC 5.06 (4.8-10.8) K/uL RBC 3.77 L (4.2-5.4) M/uL Hgb 10.2 L (12.0-16.0) g/dL Hct 30.6 L (37-47) % MCV 81.2 (80-100) fL MCH 27.1 (25-34) pg MCHC 33.3 (32-36) g/dL RDW Std Deviation 44.1 (36.4-46.3) fL RDW Coeff of Stephy 14.8 H (11.5-14.5) % Plt Count 379 (130-400) K/uL MPV 8.0 (7.4-10.4) fL Immature Gran % (Auto) 1.2 % Neut % (Auto) 79.4 % Lymph % (Auto) 7.5 % Dare % (Auto) 10.9 % Eos % (Auto) 0.8 % Baso % (Auto) 0.2 % Neut # (Auto) 4.02 (1.4-6.5) K/uL Lymph # (Auto) 0.38 L (1.2-3.4) K/uL Dare # (Auto) 0.55 (0.11-0.59) K/uL Eos # (Auto) 0.04 (0-0.5) K/uL Baso # (Auto) 0.01 (0-0.2) K/uL Immature Gran # (Auto) 0.06 H (0.00-0.02) K/uL ESR 67 H (0-30) mm/hr Fibrinogen (184-400) mg/dl Sodium 132 L (136-145) mmol/L Potassium 3.0 L (3.5-5.1) mmol/L Chloride 95 L (98-107) mmol/L Carbon Dioxide 26 (21-32) mmol/L Anion Gap 11.0 (3-11) BUN 15 (7-18) mg/dl Creatinine 0.56 L (0.6-1.2) mg/dl Est Cr Clr Drug Dosing 115.0 ml/min Est GFR ( Amer) 110.3 ml/min Est GFR (Non-Af Amer) 95.1 ml/min BUN/Creatinine Ratio 26.8 H (10-20) Glucose 142 H (70-99) mg/dl Lactate (0.4-2.0) mmol/L Calcium 8.0 L (8.5-10.1) mg/dl Total Bilirubin 0.5 (0.2-1) mg/dl AST 33 (15-37) U/L ALT 25 (12-78) U/L Alkaline Phosphatase 111 (45-117) U/L Lactate Dehydrogenase (84-246) U/L Troponin I < 0.015 (0-0.045) ng/ml C-Reactive Protein 14.90 H (0-0.29) mg/dl NT-Pro-B Natriuret Pep 1299 H (0-900) pg/ml Total Protein 6.5 (6.4-8.2) gm/dl Albumin 2.1 L (3.4-5.0) gm/dl Globulin 4.4 H (2.5-4.0) gm/dl Albumin/Globulin Ratio 0.5 L (0.9-2) Procalcitonin (0-0.5) ng/ml Urine Color Urine Appearance (Clear) Urine pH (4.5-7.5) Ur Specific [place] (1.000-1.030) Urine Protein (Negative) Urine Glucose (UA) (Negative) Urine Ketones (Negative) Urine Blood (Negative) Urine Nitrite (Negative) Urine Bilirubin (Negative) Urine Urobilinogen (Negative) Ur Leukocyte Esterase (Negative) Urine WBC (Auto) (0-5) /hpf Urine RBC (Auto) (0-4) /hpf U Hyaline Cast (Auto) (0-5) /lpf U Epithel Cells (Auto) (0-5) /lpf Urine Bacteria (Auto) (Negative) SARS-CoV-2, RNA, NAAT (NEGATIVE) 08/09/21 08/09/21 08/09/21 Range/Units 14:26 14:26 15:30 WBC (4.8-10.8) K/uL RBC (4.2-5.4) M/uL Hgb (12.0-16.0) g/dL Hct (37-47) % MCV (80-100) fL MCH (25-34) pg MCHC (32-36) g/dL RDW Std Deviation (36.4-46.3) fL RDW Coeff of Stephy (11.5-14.5) % Plt Count (130-400) K/uL MPV (7.4-10.4) fL Immature Gran % (Auto) % Neut % (Auto) % Lymph % (Auto) % Dare % (Auto) % Eos % (Auto) % Baso % (Auto) % Neut # (Auto) (1.4-6.5) K/uL Lymph # (Auto) (1.2-3.4) K/uL Dare # (Auto) (0.11-0.59) K/uL Eos # (Auto) (0-0.5) K/uL Baso # (Auto) (0-0.2) K/uL Immature Gran # (Auto) (0.00-0.02) K/uL ESR (0-30) mm/hr Fibrinogen (184-400) mg/dl Sodium (136-145) mmol/L Potassium (3.5-5.1) mmol/L Chloride (98-107) mmol/L Carbon Dioxide (21-32) mmol/L Anion Gap (3-11) BUN (7-18) mg/dl Creatinine (0.6-1.2) mg/dl Est Cr Clr Drug Dosing ml/min Est GFR ( Amer) ml/min Est GFR (Non-Af Amer) ml/min BUN/Creatinine Ratio (10-20) Glucose (70-99) mg/dl Lactate (0.4-2.0) mmol/L Calcium (8.5-10.1) mg/dl Total Bilirubin (0.2-1) mg/dl AST (15-37) U/L ALT (12-78) U/L Alkaline Phosphatase (45-117) U/L Lactate Dehydrogenase 431 H (84-246) U/L Troponin I (0-0.045) ng/ml C-Reactive Protein (0-0.29) mg/dl NT-Pro-B Natriuret Pep (0-900) pg/ml Total Protein (6.4-8.2) gm/dl Albumin (3.4-5.0) gm/dl Globulin (2.5-4.0) gm/dl Albumin/Globulin Ratio (0.9-2) Procalcitonin < 0.05 (0-0.5) ng/ml Urine Color Urine Appearance (Clear) Urine pH (4.5-7.5) Ur Specific [place] (1.000-1.030) Urine Protein (Negative) Urine Glucose (UA) (Negative) Urine Ketones (Negative) Urine Blood (Negative) Urine Nitrite (Negative) Urine Bilirubin (Negative) Urine Urobilinogen (Negative) Ur Leukocyte Esterase (Negative) Urine WBC (Auto) (0-5) /hpf Urine RBC (Auto) (0-4) /hpf U Hyaline Cast (Auto) (0-5) /lpf U Epithel Cells (Auto) (0-5) /lpf Urine Bacteria (Auto) (Negative) SARS-CoV-2, RNA, NAAT POSITIVE A* (NEGATIVE) 08/09/21 08/09/21 08/09/21 Range/Units 15:50 18:15 19:24 WBC (4.8-10.8) K/uL RBC (4.2-5.4) M/uL Hgb (12.0-16.0) g/dL Hct (37-47) % MCV (80-100) fL MCH (25-34) pg MCHC (32-36) g/dL RDW Std Deviation (36.4-46.3) fL RDW Coeff of Stephy (11.5-14.5) % Plt Count (130-400) K/uL MPV (7.4-10.4) fL Immature Gran % (Auto) % Neut % (Auto) % Lymph % (Auto) % Dare % (Auto) % Eos % (Auto) % Baso % (Auto) % Neut # (Auto) (1.4-6.5) K/uL Lymph # (Auto) (1.2-3.4) K/uL Dare # (Auto) (0.11-0.59) K/uL Eos # (Auto) (0-0.5) K/uL Baso # (Auto) (0-0.2) K/uL Immature Gran # (Auto) (0.00-0.02) K/uL ESR (0-30) mm/hr Fibrinogen 778 H (184-400) mg/dl Sodium (136-145) mmol/L Potassium (3.5-5.1) mmol/L Chloride (98-107) mmol/L Carbon Dioxide (21-32) mmol/L Anion Gap (3-11) BUN (7-18) mg/dl Creatinine (0.6-1.2) mg/dl Est Cr Clr Drug Dosing ml/min Est GFR ( Amer) ml/min Est GFR (Non-Af Amer) ml/min BUN/Creatinine Ratio (10-20) Glucose (70-99) mg/dl Lactate 1.1 (0.4-2.0) mmol/L Calcium (8.5-10.1) mg/dl Total Bilirubin (0.2-1) mg/dl AST (15-37) U/L ALT (12-78) U/L Alkaline Phosphatase (45-117) U/L Lactate Dehydrogenase (84-246) U/L Troponin I (0-0.045) ng/ml C-Reactive Protein (0-0.29) mg/dl NT-Pro-B Natriuret Pep (0-900) pg/ml Total Protein (6.4-8.2) gm/dl Albumin (3.4-5.0) gm/dl Globulin (2.5-4.0) gm/dl Albumin/Globulin Ratio (0.9-2) Procalcitonin (0-0.5) ng/ml Urine Color Yellow Urine Appearance Clear (Clear) Urine pH 7.0 (4.5-7.5) Ur Specific [place] 1.022 (1.000-1.030) Urine Protein Trace H (Negative) Urine Glucose (UA) Negative (Negative) Urine Ketones Negative (Negative) Urine Blood Negative (Negative) Urine Nitrite Negative (Negative) Urine Bilirubin Negative (Negative) Urine Urobilinogen Negative (Negative) Ur Leukocyte Esterase Negative (Negative) Urine WBC (Auto) 1-5 (0-5) /hpf Urine RBC (Auto) 0-4 (0-4) /hpf U Hyaline Cast (Auto) 0 (0-5) /lpf U Epithel Cells (Auto) >30 H (0-5) /lpf Urine Bacteria (Auto) Negative (Negative) SARS-CoV-2, RNA, NAAT (NEGATIVE) Administered Medications Discontinued Medications Acetaminophen (Acetaminophen 1000 Mg/100 Ml Iv) 1,000 mg IV NOW STA Stop: 08/09/21 14:53 Last Admin: 08/09/21 15:08 Dose: 1,000 mg Documented by: [id number] Dexamethasone Sodium Phosphate (DexamethasonePf 10 Mg/Ml Vial) 6 mg IV NOW ONE Stop: 08/09/21 14:15 Last Admin: 08/09/21 15:08 Dose: 6 mg Documented by: [id number] Sodium Chloride (Nss 1000ml) 1,000 mls @ 125 mls/hr IV .Q8H STA Stop: 08/09/21 22:13 Last Admin: 08/09/21 16:17 Dose: 125 mls/hr Documented by: [id number] Sodium Chloride (Nss 1000ml) 500 mls @ 999 mls/hr IV .Q31M ONE Stop: 08/09/21 15:21 Last Infusion: 08/09/21 15:54 Dose: 0 mls/hr Documented by: [id number] Admin: 08/09/21 15:10 Dose: 999 mls/hr Documented by: [id number] Potassium Chloride (K Alfie / Wtr) 10 meq in 100 mls @ 100 mls/hr IV ONE ONE Stop: 08/09/21 16:54 Last Infusion: 08/09/21 17:18 Dose: 0 mls/hr Documented by: [id number] Admin: 08/09/21 16:17 Dose: 100 mls/hr Documented by: [id number] Ioversol (Optiray 320 125ml) 102 ml IV ONCE ONE Stop: 08/09/21 17:34 Last Admin: 08/09/21 17:34 Dose: 102 ml Documented by: [id number] Ondansetron HCl (Ondansetron Inj 2 Mg/Ml 2 Ml Vial) 4 mg IV NOW STA Stop: 08/09/21 14:52 Last Admin: 08/09/21 15:08 Dose: 4 mg Documented by: [id number] Potassium Chloride (Potassium Chloride Crtab 20 Meq Tabcr) 40 meq PO NOW STA Stop: 08/09/21 20:05 Last Admin: 08/09/21 20:57 Dose: 40 meq Documented by: [id number] Imaging Data Radiologist's Impression: Chest CTA 08/09/21 14:14 CT angio chest PE protocol CT DOSE: 499.81 mGy.cm HISTORY: 70 years-old Female with PE +covid, hypoxic. Acute shortness of breath with hypoxia. COVID Positive. TECHNIQUE: Multiple CTA images of the chest were obtained after the intravenous administration of 102 ml Optiray. Coronal and sagittal MIPS were obtained from the axial data set and were submitted for review. All measurements were obtained according to NASCET criteria. A dose lowering technique was utilized adhering to the principles of ALARA. COMPARISON: Chest radiograph of same day FINDINGS: CTA: Mild cardiomegaly with trace pericardial effusion. There is no thoracic aortic aneurysm or dissection. Patency of the imaged great vessels. The segmental and subsegmental pulmonary arterial branches are suboptimally visualized secondary to respiratory motion artifact. No filling defects identified to suggest thromboembolic disease. CT CHEST: No large thyroid nodule. Mildly enlarged mediastinal and hilar lymph nodes with subcarinal adenopathy measuring up to 12 mm. Small pleural effusions. No pneumothorax. Extensive subpleural predominant groundglass and consolidative opacities are noted within all lobes bilaterally. The central airways are patent. Hepatosplenomegaly with hepatic steatosis. Hypodensity of the caudate lobe is suggestive of fatty infiltration. Indeterminate 9 mm hypodensity of the left hepatic lobe Indeterminate 1.5 cm lesion of the spleen on image 17 series 2. Moderate hiatal hernia with mid to distal esophageal wall thickening. Unremarkable soft tissues. No acute fracture. IMPRESSION: 1. No pulmonary emboli. 2. Extensive subpleural predominant groundglass and consolidative opacities compatible with viral pneumonia. 3. Small pleural effusions. 4. Hepatosplenomegaly with hepatic steatosis. 5. Moderate hiatal hernia. ACT 112: Negative or not required by law. The above report was generated using voice recognition software. It may contain grammatical, syntax or spelling errors. Electronically signed by: Tavo Woods M.D. 08/09/2021 6:02 PM Chest X-Ray 08/09/21 14:14 XR chest 1V portable HISTORY: 70 years-old Female Fever acute cough with fever COMPARISON: Chest radiographs 12/08/2018 TECHNIQUE: Portable AP view the chest FINDINGS: Cardiac silhouette is mildly enlarged. Reticular interstitial opacities with right greater than left peripheral predominant airspace densities. No pneumothorax or large pleural effusion. No acute fracture. IMPRESSION: Multifocal bilateral airspace opacities are suggestive of viral pneumonia. ACT 112: Negative or not required by law. The above report was generated using voice recognition software. It may contain grammatical, syntax or spelling errors. Electronically signed by: Tavo Woods M.D. 08/09/2021 3:47 PM Discharge Plan Visit Data Chief Complaint: Weakness ED Provider: Austen Garcia Discharge Problem: COVID-19, Pneumonia due to COVID-19 virus, Hypoxia, Acute hypokalemia Discharge Instructions Interventions: ED Discharge Assessment Last Done: 08/09/21 22:11
--- NOTE | 2021-08-09 20:03 | History & Physical Report ---
Date of Service August 09, 2021 Assessment & Plan (1) Pneumonia due to COVID-19 virus: Plan: COVID-19 pneumonia with hypoxia- symptom onset was at least 11 days ago dexamethasone 6 mg IV every morning Duonebs every 4 hours while awake and every 2 hours when necessary. Azithromycin 500 mg IV daily guaifenesin extended release 1200 mg p.o. every 12 hours vitamin D 1000 international units p.o. daily zinc sulfate turn 20 mg p.o. daily Lovenox subcu daily nasal cannula/oxygen mask, titrate to pulse ox 92 to 94% (2) Hypoxia: Plan: See above (3) Acute hypokalemia: Plan: Potassium 3.0 upon admission given 10 mEq 1K rider by the ED add 40 mEq p.o. Klor-Con recheck in a.m. (4) Depression: Plan: Continue sertraline (5) Sleep apnea: Plan: CPAP at bedtime as needed (6) Hypertension: Plan: Hold enalapril (7) Hyperlipidemia: Plan: Continue atorvastatin (8) GERD (gastroesophageal reflux disease): Plan: Continue Dexilant/pantoprazole History of Present Illness Chief Complaint: The patient presents to the emergency department at the insistence of her daughters, due to 11 days of cough, shortness of breath, dyspnea on exertion and generalized fatigue. Primary Care Provider: Cheryl Campos MD The patient is a 70-year-old female with a past medical history including bilateral SNHL, status post right TKA, hyperlipidemia, GERD, hypertension, anxiety with depression and osteoarthritis. She presents with symptoms as noted above. Of note, the patient's main reason for coming to the emergency department was due to concerns of her daughters regarding her ongoing symptoms for the past 11 days. Abnormal laboratories: Hemoglobin 10.2, hematocrit 30.6, potassium 3.0, sodium 132, glucose 142, LDH 431, BNP 1299, albumin 2.1. Pulse ox on room air was 81%, that improved to 96% on 2 L nasal cannula. Chest x-ray/CT angiography chest PE protocol: No pulmonary emboli, significant multifocal pneumonia. Hepatosplenomegaly, fatty liver, moderate hiatal hernia. COVID-19 testing was positive. Allergies Allergy/AdvReac Type Severity Reaction Status Date / Time sulfamethoxazole Allergy Intermediate Hives Verified 08/09/21 16:24 [From Bactrim] trimethoprim [From Bactrim] Allergy Intermediate Hives Verified 08/09/21 16:24 Home Medications Medication Instructions Recorded Confirmed Type atorvastatin 40 mg tablet (Lipitor) 40 mg PO HS 12/08/18 08/09/21 History cholecalciferol (vitamin D3) 125 5,000 unit PO QAM 12/08/18 08/09/21 History mcg (5,000 unit) tablet (Vitamin D3) dexlansoprazole 60 mg 60 mg PO QAM 12/08/18 08/09/21 History capsule,biphase delayed release (Dexilant) enalapril maleate 10 mg tablet 10 mg PO QAM 12/08/18 08/09/21 History sertraline 100 mg tablet 100 mg PO HS 12/08/18 08/09/21 History meloxicam 15 mg tablet 15 mg PO DAILY PRN #30 tab 02/13/20 08/09/21 Rx Past Med/Surg History Medical History (Updated 08/09/21 @ 22:39 by Refugio Decker MD) Depression Endometriosis GERD (gastroesophageal reflux disease) CONTROLLED Hyperlipidemia Hypertension Obesity Osteoarthritis Sleep apnea CPAP Surgical History History of bilateral tubal ligation History of colonoscopy History of dilatation and curettage History of esophagogastroduodenoscopy (EGD) History of laparoscopy History of total abdominal hysterectomy and bilateral salpingo-oophorectomy Family History Mother Family history of diabetes mellitus Hypertension Father Hearing loss Cancer Other No family history of adverse response to anesthesia No family history of bleeding disorder Social History Smoking Status: Never smoker Second Hand Exposure: No; Hx Alcohol Use: No Hx Substance Use: No Preferred Language: Greek Communication Ability: Effective Sed Special Education Teacher Required: No Beliefs That Will Affect Care: None marital status: Current Living Situation: Spouse Current Living Situation Comment: home with spouse. Other Information That Helps Us Care for You: No Feels Safe at Home: Yes Safety Concerns: Feels Safe At This Time Assistive Devices: None Review of Systems Review of Systems: The patient denies chest pain, palpitations, lower extre mity swelling, sore throat, fevers, chills, sweats, nausea, vomiting, diarrhea , constipation, abdominal pain, pelvic pain, blood in urine or stool, dysuria, urinary frequency or urgency, lightheadedness, dizziness, headache, memory loss, loss of consciousness, rash, abnormal bruising or bleeding, imbalance, focalweakness, numbness or tingling in arms or legs, generalized arthralgias or myalgias, back or neck pain, or night sweats. The review of systems is otherwise negative other than for that already noted above, and at least 10 systems have been reviewed. Physical Exam Physical Exam: The patient is awake, alert and oriented 3, well developed and well nourished, normocephalic and atraumatic, lying in bed and in no acute distress. HEENT--PERRL, EOMI, mucous membranes and oropharynx dry. Neck--supple. No JVD. No bruits. Thyroid normal, trachea midline, no adenopathy. Heart--normal S1 and S2. No murmurs, rubs or gallops. Lungs--coarse breath sounds bilaterally. No respiratory distress, no accessory muscle use. Abdomen--normal bowel sounds and soft. Nontender. Nondistended. Obese. Extremities--no cyanosis or clubbing. No edema. Dermatologic--normal skin turgor, normal color, no abnormal lymph nodes, no rash. Neurologic--cranial nerves II through XII grossly intact. Rheumatologic--normal range of motion. Psychiatric--normal affect. Results & Data Results & Data ([facility]) Vital Signs (Past 12 Hours) Vital Signs Temp Pulse Pulse Resp BP BP Pulse Ox 08/09/21 19:00 68 16 163/75 H 97 08/09/21 17:39 84 24 155/58 H 95 08/09/21 16:23 73 24 152/67 H 95 08/09/21 14:07 100.6 F H 82 26 H 143/74 H 81 L Laboratory Results Laboratory Results WBC 5.06 K/uL (4.8-10.8) 08/09/21 14:26 RBC 3.77 M/uL (4.2-5.4) L 08/09/21 14:26 Hgb 10.2 g/dL (12.0-16.0) L 08/09/21 14:26 Hct 30.6 % (37-47) L 08/09/21 14: MCV 81.2 fL (80-100) 08/09/21 14: MCH 27.1 pg (25-34) 08/09/21 14: MCHC 33.3 g/dL (32-36) 08/09/21 14: RDW Std Deviation 44.1 fL (36.4-46.3) 08/09/21 14: RDW Coeff of Stephy 14.8 % (11.5-14.5) H 08/09/21 14: Plt Count 379 K/uL (130-400) 08/09/21 14: MPV 8.0 fL (7.4-10.4) 08/09/21 14: Immature Gran % (Auto) 1.2 % 08/09/21 14: Neut % (Auto) 79.4 % 08/09/21 14: Lymph % (Auto) 7.5 % 08/09/21 14: [place] % (Auto) 10.9 % 08/09/21 14: Eos % (Auto) 0.8 % 08/09/21 14: Baso % (Auto) 0.2 % 08/09/21 14: Neut # (Auto) 4.02 K/uL (1.4-6.5) 08/09/21 14: Lymph # (Auto) 0.38 K/uL (1.2-3.4) L 08/09/21 14: [place] # (Auto) 0.55 K/uL (0.11-0.59) 08/09/21 14: Eos # (Auto) 0.04 K/uL (0-0.5) 08/09/21 14: Baso # (Auto) 0.01 K/uL (0-0.2) 08/09/21 14: Immature Gran # (Auto) 0.06 K/uL (0.00-0.02) H 08/09/21 14: ESR 67 mm/hr (0-30) H 08/09/21 14: Fibrinogen 778 mg/dl (184-400) H 08/09/21 19:24 Sodium 132 mmol/L (136-145) L 08/09/21 14: Potassium 3.0 mmol/L (3.5-5.1) L 08/09/21 14:26 Chloride 95 mmol/L (98-107) L 08/09/21 14:26 Carbon Dioxide 26 mmol/L (21-32) 08/09/21 14:26 Anion Gap 11.0 (3-11) 08/09/21 14:26 BUN 15 mg/dl (7-18) 08/09/21 14:26 Creatinine 0.56 mg/dl (0.6-1.2) L 08/09/21 14:26 Est Cr Clr Drug Dosing 115.0 ml/min 08/09/21 14:26 Est GFR ( Amer) 110.3 ml/min 08/09/21 14:26 Est GFR (Non-Af Amer) 95.1 ml/min 08/09/21 14:26 BUN/Creatinine Ratio 26.8 (10-20) H 08/09/21 14:26 Glucose 142 mg/dl (70-99) H 08/09/21 14:26 Lactate 1.1 mmol/L (0.4-2.0) 08/09/21 15:50 Calcium 8.0 mg/dl (8.5-10.1) L 08/09/21 14:26 Total Bilirubin 0.5 mg/dl (0.2-1) 08/09/21 14:26 AST 33 U/L (15-37) 08/09/21 14:26 ALT 25 U/L (12-78) 08/09/21 14:26 Alkaline Phosphatase 111 U/L (45-117) 08/09/21 14:26 Lactate Dehydrogenase 431 U/L (84-246) H 08/09/21 14:26 Troponin I < 0.015 ng/ml (0-0.045) 08/09/21 14:26 C-Reactive Protein 14.90 mg/dl (0-0.29) H 08/09/21 14:26 NT-Pro-B Natriuret Pep 1299 pg/ml (0-900) H 08/09/21 14:26 Total Protein 6.5 gm/dl (6.4-8.2) 08/09/21 14:26 Albumin 2.1 gm/dl (3.4-5.0) L 08/09/21 14:26 Globulin 4.4 gm/dl (2.5-4.0) H 08/09/21 14:26 Albumin/Globulin Ratio 0.5 (0.9-2) L 08/09/21 14:26 Procalcitonin < 0.05 ng/ml (0-0.5) 08/09/21 14:26 Urine Color Yellow 08/09/21 18:15 Urine Appearance Clear (Clear) 08/09/21 18:15 Urine pH 7.0 (4.5-7.5) 08/09/21 18:15 Ur Specific [place] 1.022 (1.000-1.030) 08/09/21 18:15 Urine Protein Trace (Negative) H 08/09/21 18:15 Urine Glucose (UA) Negative (Negative) 08/09/21 18:15 Urine Ketones Negative (Negative) 08/09/21 18:15 Urine Blood Negative (Negative) 08/09/21 18:15 Urine Nitrite Negative (Negative) 08/09/21 18:15 Urine Bilirubin Negative (Negative) 08/09/21 18:15 Urine Urobilinogen Negative (Negative) 08/09/21 18:15 Ur Leukocyte Esterase Negative (Negative) 08/09/21 18:15 Urine WBC (Auto) 1-5 /hpf (0-5) 08/09/21 18:15 Urine RBC (Auto) 0-4 /hpf (0-4) 08/09/21 18:15 U Hyaline Cast (Auto) 0 /lpf (0-5) 08/09/21 18:15 U Epithel Cells (Auto) >30 /lpf (0-5) H 08/09/21 18:15 Urine Bacteria (Auto) Negative (Negative) 08/09/21 18:15 SARS-CoV-2, RNA, NAAT POSITIVE (NEGATIVE) A* 08/09/21 15:30 Impressions Chest CTA 08/09/21 14:14 CT angio chest PE protocol CT DOSE: 499.81 mGy.cm HISTORY: 70 years-old Female with PE +covid, hypoxic. Acute shortness of breath with hypoxia. COVID Positive. TECHNIQUE: Multiple CTA images of the chest were obtained after the intravenous administration of 102 ml Optiray. Coronal and sagittal MIPS were obtained from the axial data set and were submitted for review. All measurements were obtained according to NASCET criteria. A dose lowering technique was utilized adhering to the principles of ALARA. COMPARISON: Chest radiograph of same day FINDINGS: CTA: Mild cardiomegaly with trace pericardial effusion. There is no thoracic aortic aneurysm or dissection. Patency of the imaged great vessels. The segmental and subsegmental pulmonary arterial branches are suboptimally visualized secondary to respiratory motion artifact. No filling defects identified to suggest thromboembolic disease. CT CHEST: No large thyroid nodule. Mildly enlarged mediastinal and hilar lymph nodes with subcarinal adenopathy measuring up to 12 mm. Small pleural effusions. No pneumothorax. Extensive subpleural predominant groundglass and consolidative opacities are noted within all lobes bilaterally. The central airways are patent. Hepatosplenomegaly with hepatic steatosis. Hypodensity of the caudate lobe is suggestive of fatty infiltration. Indeterminate 9 mm hypodensity of the left hepatic lobe Indeterminate 1.5 cm lesion of the spleen on image 17 series 2. Moderate hiatal hernia with mid to distal esophageal wall thickening. Unremarkable soft tissues. No acute fracture. IMPRESSION: 1. No pulmonary emboli. 2. Extensive subpleural predominant groundglass and consolidative opacities compatible with viral pneumonia. 3. Small pleural effusions. 4. Hepatosplenomegaly with hepatic steatosis. 5. Moderate hiatal hernia. ACT 112: Negative or not required by law. The above report was generated using voice recognition software. It may contain grammatical, syntax or spelling errors. Electronically signed by: Tavo Woods M.D. 08/09/2021 6:02 PM Chest X-Ray 08/09/21 14:14 XR chest 1V portable HISTORY: 70 years-old Female Fever acute cough with fever COMPARISON: Chest radiographs 12/08/2018 TECHNIQUE: Portable AP view the chest FINDINGS: Cardiac silhouette is mildly enlarged. Reticular interstitial opacities with right greater than left peripheral predominant airspace densities. No pneumothorax or large pleural effusion. No acute fracture. IMPRESSION: Multifocal bilateral airspace opacities are suggestive of viral pneumonia. ACT 112: Negative or not required by law. The above report was generated using voice recognition software. It may contain grammatical, syntax or spelling errors. Electronically signed by: Tavo Woods M.D. 08/09/2021 3:47 PM Code Status & VTE Plan Code Status Full code VTE Prophylaxis Plan VTE Prophylaxis will be ordered: Yes PG Care Time/CCT Total # of Minutes Spent Total Time Spent with Patient: Total time spent is greater than 50% in coordination of care (as documented) at patient's floor/unit and/or counseling patient: Coding Level of Care Code 91991 Initial Inpt Care Lvl 3 Diagnoses Pneumonia due to COVID-19 virus U07.1; J12.82 Hypoxia R09.02 Acute hypokalemia E87.6 Depression F32.9 Sleep apnea G47.30 Hypertension I10 Hyperlipidemia E78.5 GERD (gastroesophageal reflux disease) K21.9
[2021-08-09] MEDS ORDERED: POTASSIUM CHLORIDE CRTAB 20 MEQ TABCR PO STA (20:04)
[2021-08-09 21:30] LABS: Fibrinogen 778 mg/dl (184-400)
[2021-08-09] MEDS ORDERED: ONDANSETRON INJ 2 MG/ML 2 ML VIAL IV PRN (22:35)
[2021-08-09] MEDS ORDERED: ACETAMINOPHEN 325 MG TAB PO PRN (22:35)
[2021-08-09] MEDS: ENOXAPARIN INJ 60 MG/0.6 ML SYR SQ SCH (23:18)
[2021-08-09] MEDS: guaiFENesin 600 MG TABCR PO SCH (23:18)
[2021-08-09] MEDS: ATORVASTATIN 40 MG TAB PO SCH (23:18)
[2021-08-09] MEDS: SERTRALINE HCL 100 MG TABLET PO SCH (23:18)
[2021-08-10] MEDS: AZITHROMYCIN 500 MG in DEXTROSE 5% 250 ML IV SCH (06:07)
[2021-08-10] MEDS ORDERED: ALBUT/IPRATROP 3MG/0.5MG NEB 3 ML VIAL NEB SCH (07:00)
[2021-08-10] MEDS ORDERED: ALBUT/IPRATROP 3MG/0.5MG NEB 3 ML VIAL NEB PRN (08:13)
[2021-08-10] MEDS: PANTOprazole 40 MG TAB PO SCH (08:28)
[2021-08-10] MEDS: CHOLECALCIFEROL 1,000 UNITS 25 MCG TAB PO SCH (08:28)
[2021-08-10] MEDS: ZINC SULFATE 220 MG CAPSULE PO SCH (08:28)
[2021-08-10] MEDS: guaiFENesin 600 MG TABCR PO SCH ×2 (08:28→21:00)
[2021-08-10] MEDS: dexAMETHasone 6 MG in SYRINGE 0 ML IV SCH (08:29)
[2021-08-10 09:20] LABS: Eosinophils # (auto) 0.04 K/uL (0-0.5); Eosinophils % (auto) 0.9 %; Hematocrit (blood only) 28.4 % (37-47); Hemoglobin 9.2 g/dL (12.0-16.0); Immature Granulocytes # (auto) 0.04 K/uL (0.00-0.02); Immature Granulocytes % (auto) 0.9 %; Lymphocytes % (auto) 11.1 %; Mean Corpuscular Hemoglobin 26.7 pg (25-34); Mean Corpuscular Hgb Conc 32.4 g/dL (32-36); Mean Corpuscular Volume 82.6 fL (80-100); Mean Platelet Volume 7.8 fL (7.4-10.4); Monocytes # (auto) 0.38 K/uL (0.11-0.59); Monocytes % (auto) 8.4 %; Neutrophils # (auto) 3.56 K/uL (1.4-6.5); Neutrophils % (auto) 78.7 %; Platelet Count 362 K/uL (130-400); RDW Coefficient of Variation 14.8 % (11.5-14.5); RDW Standard Deviation 44.6 fL (36.4-46.3); Red Blood Count 3.44 M/uL (4.2-5.4); White Blood Count 4.52 K/uL (4.8-10.8)
[2021-08-10 09:54] LABS: Albumin Globulin Ratio 0.5 (0.9-2); Albumin Level 1.9 gm/dl (3.4-5.0); BUN Creatinine Ratio 23.4 (10-20); Bilirubin,Total 0.4 mg/dl (0.2-1); Calcium 8.3 mg/dl (8.5-10.1); Creatinine Clr Calc Pharmacy 92.4 ml/min; Est GFR (African American) 106.1 ml/min; Est GFR (Non-African American) 91.5 ml/min; Globulin 4.1 gm/dl (2.5-4.0); Magnesium 2.1 mg/dl (1.8-2.4); Potassium 3.5 mmol/L (3.5-5.1)
[2021-08-10] MEDS ORDERED: POTASSIUM CHLORIDE CRTAB 20 MEQ TABCR PO STA (12:30)
[2021-08-10] MEDS ORDERED: FUROSEMIDE INJ 20 MG/2 ML VIAL IV ONE (12:30)
[2021-08-10] MEDS: ATORVASTATIN 40 MG TAB PO SCH (20:59)
[2021-08-10] MEDS: ENOXAPARIN INJ 60 MG/0.6 ML SYR SQ SCH (21:00)
[2021-08-10] MEDS: SERTRALINE HCL 100 MG TABLET PO SCH (21:00)
--- NOTE | 2021-08-10 23:23 | Hospitalist Progress Note ---
Date of Service August 10, 2021 Assessment & Plan (1) Pneumonia due to COVID-19 virus: Plan: COVID-19 pneumonia with hypoxia- currently requiring 2L, no distress dexamethasone 6 mg IV every morning, day 2 Duonebs PRN Azithromycin 500 mg IV daily x 5 days guaifenesin extended release 1200 mg p.o. every 12 hours vitamin D 1000 international units p.o. daily zinc sulfate turn 20 mg p.o. daily Lovenox subcu daily (2) Hypoxia: Plan: See above on 2L, numerous ground glass opacities in bilateral lungs on CT try to wean oxygen as tolerated (3) Acute hypokalemia: Plan: Potassium 3.0 upon admission up to 3.5 after aggressive replacement (4) Depression: Plan: Continue sertraline (5) Sleep apnea: Plan: CPAP at bedtime as needed (6) Hypertension: Plan: Hold enalapril (7) Hyperlipidemia: Plan: Continue atorvastatin (8) GERD (gastroesophageal reflux disease): Plan: Continue Dexilant/pantoprazole Admission and Anticipated Discharge Date Admission Date: August 09, 2021 Subjective patient feeling better, eating a lot better, ate her entire lunch, no nausea, no vomiting she says she is breathing okay, gets short of breath on exertion, currently on 2L she is not vaccinated reviewed the chart and labs discussed plan to try to wean oxygen actually surprised she is not on more oxygen given the amount of ground glass opacities in her lungs Review of Systems Review of Systems: All systems reviewed & are unremarkable except as noted in Subjective Constitutional: + fatigue and + weakness; no fever, no chills and no sweats Respiratory: + cough, + dyspnea and + dyspnea on exertion Cardiovascular: no chest pain Physical Exam Physical Exam: General: well developed, obese female, no acute distress, ill appearing Neck: supple, trachea midline, normal thyroid Lungs: clear to auscultation bilaterally, slightly tachypneic, no accessory muscle use, no distress Heart: regular S1 and S2, no murmur, peripheral pulses normal, capillary refill normal, no edema Abdomen: soft, NT, ND, + BS, no hepatomegaly, normal to percussion Extremities: normal in appearance, no cyanosis, no petechiae, strength is 5/5 bilaterally Neuro: awake, cooperative, moves all extremities, no focal motor deficits, CN II-XII intact, sensation in extremities intact, normal speech Skin: warm, dry, no rash, normal turgor Psych: Awake, alert oriented x 3, euthymic affect Results & Data Results & Data ([facility]) Vital Signs (Past 12 Hours) Vital Signs Temp Pulse Pulse Resp BP Pulse Ox 08/10/21 19:28 37.2 C 75 18 168/76 H 88 L 08/10/21 16:38 79 08/10/21 11:27 37.0 C 84 16 125/71 91 Laboratory Results Laboratory Results - last 24 hr 08/10/21 08/10/21 08:55 08:55 WBC 4.52 L RBC 3.44 L Hgb 9.2 L Hct 28.4 L MCV 82.6 MCH 26.7 MCHC 32.4 RDW Std Deviation 44.6 RDW Coeff of Stephy 14.8 H Plt Count 362 MPV 7.8 Immature Gran % (Auto) 0.9 Neut % (Auto) 78.7 Lymph % (Auto) 11.1 [place] % (Auto) 8.4 Eos % (Auto) 0.9 Baso % (Auto) 0.0 Neut # (Auto) 3.56 Lymph # (Auto) 0.50 L [place] # (Auto) 0.38 Eos # (Auto) 0.04 Baso # (Auto) 0.00 Immature Gran # (Auto) 0.04 H Sodium 134 L Potassium 3.5 D Chloride 100 Carbon Dioxide 25 Anion Gap 9.0 BUN 15 Creatinine 0.63 Est Cr Clr Drug Dosing 92.4 Est GFR ( Amer) 106.1 Est GFR (Non-Af Amer) 91.5 BUN/Creatinine Ratio 23.4 H Glucose 150 H Calcium 8.3 L Magnesium 2.1 Total Bilirubin 0.4 AST 26 ALT 23 Alkaline Phosphatase 100 Total Protein 6.0 L Albumin 1.9 L Globulin 4.1 H Albumin/Globulin Ratio 0.5 L Medications Administered Current Inpatient Medications Acetaminophen (Acetaminophen 325 Mg Tab) 650 mg PO Q4H PRN PRN Reason: Pain or Fever Stop: 09/08/21 22:34 Albuterol (Albut/Ipratrop 3mg/0.5mg Neb 3 Ml Vial) 3 ml NEB QIDR PRN PRN Reason: Wheezing Stop: 09/09/21 06:59 Atorvastatin Calcium (Atorvastatin 40 Mg Tab) 40 mg PO HS LUSI Stop: 09/08/21 22:34 Last Admin: 11/22/21 20:59 Dose: 40 mg Documented by: Enoxaparin Sodium (Enoxaparin Inj 60 Mg/0.6 Ml Syr) 50 mg SQ [facility] Stop: 09/08/21 22:59 Last Admin: 08/10/21 21:00 Dose: 50 mg Documented by: Guaifenesin (Guaifenesin 600 Mg Tabcr) 1,200 mg PO Q12 [facility] Stop: 09/08/21 22:34 Last Admin: 08/10/21 21:00 Dose: 1,200 mg Documented by: Dexamethasone 6 mg/ Syringe 1.5 mls @ 1 mls/min IV Q24H [facility] Stop: 09/09/21 08:59 Last Admin: 08/10/21 08:29 Dose: 1 mls/min Documented by: Azithromycin 500 mg/ Dextrose 255 mls @ 125 mls/hr IV Q24H [facility] Stop: 08/17/21 05:59 Last Infusion: 08/10/21 08:31 Dose: Infused Documented by: Ondansetron HCl (Ondansetron Inj 2 Mg/Ml 2 Ml Vial) 4 mg IV Q6H PRN PRN Reason: Nausea Stop: 09/08/21 22:34 Pantoprazole Sodium (Pantoprazole 40 Mg Tab) 40 mg PO [facility] Stop: 09/09/21 08:59 Last Admin: 08/10/21 08:28 Dose: 40 mg Documented by: Sertraline HCl (Sertraline Hcl 100 Mg Tablet) 100 mg PO [facility] Stop: 09/08/21 22:34 Last Admin: 08/10/21 21:00 Dose: 100 mg Documented by: Vitamin D (Cholecalciferol 1,000 Units 25 Mcg Tab) 5,000 units PO [facility] Stop: 09/09/21 08:59 Last Admin: 08/10/21 08:28 Dose: 5,000 units Documented by: Zinc Sulfate (Zinc Sulfate 220 Mg Capsule) 220 mg PO [facility] Stop: 09/09/21 08:59 Last Admin: 08/10/21 08:28 Dose: 220 mg Documented by: PG Care Time/CCT Total # of Minutes Spent Total Time Spent with Patient: Total time spent is greater than 50% in coordination of care (as documented) at patient's floor/unit and/or counseling patient: Coding Level of Care Code 67966 Subseq Hosp Care Lvl 2 Diagnoses Pneumonia due to COVID-19 virus U07.1; J12.82 Hypoxia R09.02 Acute hypokalemia E87.6 Depression F32.9 Sleep apnea G47.30 Hypertension I10 Hyperlipidemia E78.5 GERD (gastroesophageal reflux disease) K21.9
[2021-08-11] MEDS: AZITHROMYCIN 500 MG in DEXTROSE 5% 250 ML IV SCH (05:36)
--- NOTE | 2021-08-11 05:40 | Electrocardiogram Report ---
Test Reason : Blood Pressure : / mmHG Vent. Rate : 083 BPM Atrial Rate : 083 BPM P-R Int : 128 ms QRS Dur : 136 ms QT Int : 460 ms P-R-T Axes : 062 -27 001 degrees QTc Int : 540 ms Normal sinus rhythm Possible Left atrial enlargement Right bundle branch block Left ventricular hypertrophy Abnormal ECG When compared with ECG of 08-DEC-2018 11:08, Right bundle branch block is now Present Confirmed by Viktor Ayala ([id number]) on 08/11/2021 5:39:56 AM Referred By: Confirmed By:Viktor Ayala
[2021-08-11] MEDS: dexAMETHasone 6 MG in SYRINGE 0 ML IV SCH (07:34)
[2021-08-11] MEDS: guaiFENesin 600 MG TABCR PO SCH ×2 (07:34→20:45)
[2021-08-11] MEDS: PANTOprazole 40 MG TAB PO SCH (07:35)
[2021-08-11] MEDS: ZINC SULFATE 220 MG CAPSULE PO SCH (07:35)
[2021-08-11] MEDS: CHOLECALCIFEROL 1,000 UNITS 25 MCG TAB PO SCH (07:35)
[2021-08-11 07:55] LABS: Basophils # (auto) 0.01 K/uL (0-0.2); Basophils % (auto) 0.2 %; Eosinophils # (auto) 0.04 K/uL (0-0.5); Eosinophils % (auto) 0.8 %; Hematocrit (blood only) 26.2 % (37-47); Hemoglobin 8.6 g/dL (12.0-16.0); Immature Granulocytes # (auto) 0.15 K/uL (0.00-0.02); Immature Granulocytes % (auto) 2.9 %; Lymphocytes # (auto) 0.86 K/uL (1.2-3.4); Lymphocytes % (auto) 16.7 %; Mean Corpuscular Hgb Conc 32.8 g/dL (32-36); Mean Corpuscular Volume 82.1 fL (80-100); Mean Platelet Volume 7.9 fL (7.4-10.4); Monocytes # (auto) 0.66 K/uL (0.11-0.59); Monocytes % (auto) 12.8 %; Neutrophils # (auto) 3.44 K/uL (1.4-6.5); Neutrophils % (auto) 66.6 %; Platelet Count 385 K/uL (130-400); RDW Coefficient of Variation 14.5 % (11.5-14.5); RDW Standard Deviation 44.3 fL (36.4-46.3); Red Blood Count 3.19 M/uL (4.2-5.4); White Blood Count 5.16 K/uL (4.8-10.8)
[2021-08-11 08:32] LABS: Albumin Level 1.9 gm/dl (3.4-5.0); BUN Creatinine Ratio 26.3 (10-20); Calcium 8.4 mg/dl (8.5-10.1); Creatinine Clr Calc Pharmacy 95.9 ml/min; Est GFR (African American) 107.2 ml/min; Est GFR (Non-African American) 92.5 ml/min; Magnesium 2.1 mg/dl (1.8-2.4); Potassium 3.2 mmol/L (3.5-5.1)
[2021-08-11 08:33] LABS: Albumin Globulin Ratio 0.5 (0.9-2); Bilirubin,Total 0.3 mg/dl (0.2-1); Globulin 3.9 gm/dl (2.5-4.0); Total Protein 5.8 gm/dl (6.4-8.2)
--- NOTE | 2021-08-11 13:36 | Hospitalist Progress Note ---
Date of Service August 11, 2021 Assessment & Plan (1) Pneumonia due to COVID-19 virus: Plan: COVID-19 pneumonia with hypoxia- currently down to 1L, no distress dexamethasone 6 mg IV every morning, day 3 Duonebs PRN Azithromycin 500 mg IV daily x 5 days, day 3 guaifenesin extended release 1200 mg p.o. every 12 hours vitamin D 1000 international units p.o. daily zinc sulfate turn 20 mg p.o. daily Lovenox subcu daily consider 2 step tomorrow if on room air at rest contact her daughter Alina by noon if possible, she lives over an hour away (2) Hypoxia: Plan: See above on 1L, numerous ground glass opacities in bilateral lungs on CT try to wean oxygen as tolerated (3) Acute hypokalemia: Plan: Potassium 3.0 upon admission up to 3.2 today (4) Depression: Plan: Continue sertraline (5) Sleep apnea: Plan: CPAP at bedtime as needed (6) Hypertension: Plan: resume enalapril as BP is up (7) Hyperlipidemia: Plan: Continue atorvastatin (8) GERD (gastroesophageal reflux disease): Plan: Continue Dexilant/pantoprazole (9) Anemia: Plan: Hb down to 8.6 from 10.2 on admission no dark stools reported, BP is elevated, not low BUN is 16, not going up fecal occult testing with next BM Plan: might be ready for discharge tomorrow or contact her daughter Alina check labs tomorrow, specifically hemoglobin Admission and Anticipated Discharge Date Admission Date: August 09, 2021 Subjective patient continues to do well, eating a lot more, no vertigo or nausea no fever/chills, no chest pain admits to a cough and dyspnea, no diarrhea she made urine with Lasix 20mg IV yesterday updated her daughter over the phone, discussed that should could be ready for discharge tomorrow or Review of Systems Review of Systems: All systems reviewed & are unremarkable except as noted in Subjective Respiratory: + cough and + dyspnea Physical Exam Physical Exam: General: well developed, obese female, no acute distress, ill appearing Neck: supple, trachea midline, normal thyroid Lungs: clear to auscultation bilaterally, slightly tachypneic, no accessory muscle use, no distress Heart: regular S1 and S2, no murmur, peripheral pulses normal, capillary refill normal, no edema Abdomen: soft, NT, ND, + BS, no hepatomegaly, normal to percussion Extremities: normal in appearance, no cyanosis, no petechiae, strength is 5/5 bilaterally Neuro: awake, cooperative, moves all extremities, no focal motor deficits, CN II-XII intact, sensation in extremities intact, normal speech Skin: warm, dry, no rash, normal turgor Psych: Awake, alert oriented x 3, euthymic affect Results & Data Results & Data ([facility]) Vital Signs (Past 12 Hours) Vital Signs Temp Pulse Pulse Resp BP Pulse Ox 08/11/21 12:24 95 08/11/21 11:30 36.7 C 66 16 140/84 95 08/11/21 07:20 57 L 08/11/21 06:33 36.8 C 68 18 158/75 H 94 Laboratory Results Laboratory Results - last 24 hr 08/11/21 08/11/21 07:05 07:05 WBC 5.16 RBC 3.19 L Hgb 8.6 L Hct 26.2 L MCV 82.1 MCH 27.0 MCHC 32.8 RDW Std Deviation 44.3 RDW Coeff of Stephy 14.5 Plt Count 385 MPV 7.9 Immature Gran % (Auto) 2.9 Neut % (Auto) 66.6 Lymph % (Auto) 16.7 Norman % (Auto) 12.8 Eos % (Auto) 0.8 Baso % (Auto) 0.2 Neut # (Auto) 3.44 Lymph # (Auto) 0.86 L Norman # (Auto) 0.66 H Eos # (Auto) 0.04 Baso # (Auto) 0.01 Immature Gran # (Auto) 0.15 H Sodium 136 Potassium 3.2 L Chloride 101 Carbon Dioxide 25 Anion Gap 10.0 BUN 16 Creatinine 0.61 Est Cr Clr Drug Dosing 95.9 Est GFR ( Amer) 107.2 Est GFR (Non-Af Amer) 92.5 BUN/Creatinine Ratio 26.3 H Glucose 121 H Calcium 8.4 L Magnesium 2.1 Total Bilirubin 0.3 AST 25 ALT 25 Alkaline Phosphatase 93 Total Protein 5.8 L Albumin 1.9 L Globulin 3.9 Albumin/Globulin Ratio 0.5 L Medications Administered Current Inpatient Medications Acetaminophen (Acetaminophen 325 Mg Tab) 650 mg PO Q4H PRN PRN Reason: Pain or Fever Stop: 09/08/21 22:34 Albuterol (Albut/Ipratrop 3mg/0.5mg Neb 3 Ml Vial) 3 ml NEB QIDR PRN PRN Reason: Wheezing Stop: 09/09/21 06:59 Atorvastatin Calcium (Atorvastatin 40 Mg Tab) 40 mg PO [facility] Stop: 09/08/21 22:34 Last Admin: 08/11/21 20:43 Dose: 40 mg Documented by: Enoxaparin Sodium (Enoxaparin Inj 60 Mg/0.6 Ml Syr) 50 mg SQ [facility] Stop: 09/08/21 22:59 Last Admin: 08/11/21 20:45 Dose: 50 mg Documented by: Guaifenesin (Guaifenesin 600 Mg Tabcr) 1,200 mg PO Q12 [facility] Stop: 09/08/21 22:34 Last Admin: 08/11/21 20:45 Dose: 1,200 mg Documented by: Dexamethasone 6 mg/ Syringe 1.5 mls @ 1 mls/min IV Q24H [facility] Stop: 09/09/21 08:59 Last Admin: 08/11/21 07:34 Dose: 1 mls/min Documented by: Azithromycin 500 mg/ Dextrose 255 mls @ 125 mls/hr IV Q24H [facility] Stop: 08/17/21 05:59 Last Infusion: 08/11/21 07:46 Dose: Infused Documented by: Ondansetron HCl (Ondansetron Inj 2 Mg/Ml 2 Ml Vial) 4 mg IV Q6H PRN PRN Reason: Nausea Stop: 09/08/21 22:34 Pantoprazole Sodium (Pantoprazole 40 Mg Tab) 40 mg PO [facility] Stop: 09/09/21 08:59 Last Admin: 08/11/21 07:35 Dose: 40 mg Documented by: Sertraline HCl (Sertraline Hcl 100 Mg Tablet) 100 mg PO [facility] Stop: 09/08/21 22:34 Last Admin: 08/11/21 20:45 Dose: 100 mg Documented by: Vitamin D (Cholecalciferol 1,000 Units 25 Mcg Tab) 5,000 units PO [facility] Stop: 09/09/21 08:59 Last Admin: 08/11/21 07:35 Dose: 5,000 units Documented by: Zinc Sulfate (Zinc Sulfate 220 Mg Capsule) 220 mg PO [facility] Stop: 09/09/21 08:59 Last Admin: 08/11/21 07:35 Dose: 220 mg Documented by: PG Care Time/CCT Total # of Minutes Spent Total Time Spent with Patient: Total time spent is greater than 50% in coordination of care (as documented) at patient's floor/unit and/or counseling patient: Coding Level of Care Code 47111 Subseq Hosp Care Lvl 3 Diagnoses Pneumonia due to COVID-19 virus U07.1; J12.82 Hypoxia R09.02 Acute hypokalemia E87.6 Depression F32.9 Sleep apnea G47.30 Hypertension I10 Hyperlipidemia E78.5 GERD (gastroesophageal reflux disease) K21.9 Anemia D64.9
[2021-08-11] MEDS: ATORVASTATIN 40 MG TAB PO SCH (20:43)
[2021-08-11] MEDS: SERTRALINE HCL 100 MG TABLET PO SCH (20:45)
[2021-08-11] MEDS: ENOXAPARIN INJ 60 MG/0.6 ML SYR SQ SCH (20:45)
[2021-08-12 05:49] LABS: Basophils # (auto) 0.01 K/uL (0-0.2); Basophils % (auto) 0.2 %; Eosinophils # (auto) 0.01 K/uL (0-0.5); Eosinophils % (auto) 0.2 %; Hematocrit (blood only) 28.3 % (37-47); Hemoglobin 9.1 g/dL (12.0-16.0); Immature Granulocytes # (auto) 0.31 K/uL (0.00-0.02); Lymphocytes # (auto) 1.12 K/uL (1.2-3.4); Lymphocytes % (auto) 17.9 %; Mean Corpuscular Hemoglobin 26.5 pg (25-34); Mean Corpuscular Hgb Conc 32.2 g/dL (32-36); Mean Corpuscular Volume 82.5 fL (80-100); Mean Platelet Volume 7.9 fL (7.4-10.4); Monocytes # (auto) 0.69 K/uL (0.11-0.59); Neutrophils # (auto) 4.11 K/uL (1.4-6.5); Neutrophils % (auto) 65.7 %; Platelet Count 416 K/uL (130-400); RDW Coefficient of Variation 14.6 % (11.5-14.5); RDW Standard Deviation 44.1 fL (36.4-46.3); Red Blood Count 3.43 M/uL (4.2-5.4); White Blood Count 6.25 K/uL (4.8-10.8)
[2021-08-12] MEDS: AZITHROMYCIN 500 MG in DEXTROSE 5% 250 ML IV SCH (06:16)
[2021-08-12 06:42] LABS: Albumin Globulin Ratio 0.5 (0.9-2); Albumin Level 2.1 gm/dl (3.4-5.0); BUN Creatinine Ratio 30.9 (10-20); Bilirubin,Total 0.4 mg/dl (0.2-1); Calcium 9.1 mg/dl (8.5-10.1); Creatinine Clr Calc Pharmacy 87.3 ml/min; Est GFR (African American) 103.9 ml/min; Est GFR (Non-African American) 89.7 ml/min; Globulin 4.2 gm/dl (2.5-4.0); Magnesium 2.1 mg/dl (1.8-2.4); Potassium 3.9 mmol/L (3.5-5.1); Total Protein 6.3 gm/dl (6.4-8.2)
[2021-08-12] MEDS: dexAMETHasone 6 MG in SYRINGE 0 ML IV SCH (08:17)
[2021-08-12] MEDS: CHOLECALCIFEROL 1,000 UNITS 25 MCG TAB PO SCH (08:17)
[2021-08-12] MEDS: PANTOprazole 40 MG TAB PO SCH (08:18)
[2021-08-12] MEDS: ZINC SULFATE 220 MG CAPSULE PO SCH (08:18)
[2021-08-12] MEDS: guaiFENesin 600 MG TABCR PO SCH ×2 (08:18→22:00)
[2021-08-12] MEDS: POTASSIUM CHLORIDE CRTAB 20 MEQ TABCR PO SCH ×2 (08:18→22:00)
--- NOTE | 2021-08-12 08:29 | Hospitalist Progress Note ---
Date of Service August 12, 2021 Assessment & Plan (1) Pneumonia due to COVID-19 virus: Plan: COVID-19 pneumonia with hypoxia- currently down to 1L, no distress dexamethasone 6 mg IV every morning, Duonebs PRN Azithromycin 500 mg IV daily x 5 days, day 3 guaifenesin extended release 1200 mg p.o. every 12 hours vitamin D 1000 international units p.o. daily zinc sulfate turn 20 mg p.o. daily Lovenox subcu daily family and patient understand that one more day may lead to oxygen wean to room air (2) Hypoxia: (3) Acute hypokalemia: Plan: resolved (4) Depression: Plan: Continue sertraline (5) Sleep apnea: Plan: CPAP at bedtime as needed (6) Hypertension: Plan: resume enalapril as BP is up (7) Hyperlipidemia: Plan: Continue atorvastatin (8) GERD (gastroesophageal reflux disease): Plan: Continue Dexilant/pantoprazole (9) Anemia: Plan: hgb is stable check iron in the am Plan: might be ready for discharge contact her daughter Alina check labs tomorrow, specifically hemoglobin Admission and Anticipated Discharge Date Admission Date: August 09, 2021 Subjective With fatigue and also requiring oxygen could not get on room air earlier today required 2 L had some basilar crackles Review of Systems Review of Systems: Mild distress and marked fatigue no headache, no visual changes no speech or swallowing issues no chest pain, pressure or palpitations Continue shortness of breath, nonproductive cough no abdominal pain, nausea or vomiting, diarrhea or constipation no dysuria, hematuria or frequency no focal joint pain or swelling no back pain, CVA tenderness or radicular pain no bruising, bleeding or rashes no focal signs of weakness or numbness or altered sensation no complaints of anxiety or depression.. Physical Exam Physical Exam: The patient appeared well nourished and normally developed. Vital signs as documented. Head exam is normocephalic atraumatic Neck is without JVD, thyromegaly, or carotid bruits. Lungs are bibasilar rales consistent with Covid pneumonia Cardiac exam, Rhythm is regular.. No murmurs, rubs or gallops. Abdominal exam reveals normal bowel sounds, soft non tender, no masses Extremities are nonedematous and both pedal pulses are present Neurologic exam is alert and oriented, no focal loss of strength or sensation Skin is without bruises or rashes Psychologically is without concerns for anxiety or depression.. Results & Data Results & Data ([facility]) Vital Signs (Past 12 Hours) Vital Signs Temp Pulse Pulse Resp BP Pulse Ox 08/12/21 07:00 74 08/12/21 06:42 86 L 08/12/21 06:31 97.9 F 67 18 162/81 H 94 08/12/21 03:14 98.1 F 68 18 171/78 H 92 08/11/21 23:47 63 08/11/21 20:39 98.1 F 64 18 180/78 H 94 PG Care Time/CCT Total # of Minutes Spent Total Time Spent with Patient: Total time spent is greater than 50% in coordination of care (as documented) at patient's floor/unit and/or counseling patient: Coding Level of Care Code 10423 Subseq Hosp Care Lvl 2 Diagnoses Pneumonia due to COVID-19 virus U07.1; J12.82 Hypoxia R09.02 Acute hypokalemia E87.6 Depression F32.9 Sleep apnea G47.30 Hypertension I10 Hyperlipidemia E78.5 GERD (gastroesophageal reflux disease) K21.9 Anemia D64.9
[2021-08-12] MEDS: SERTRALINE HCL 100 MG TABLET PO SCH (22:00)
[2021-08-12] MEDS: ENOXAPARIN INJ 60 MG/0.6 ML SYR SQ SCH (22:01)
[2021-08-12] MEDS: ATORVASTATIN 40 MG TAB PO SCH (22:01)
[2021-08-13] MEDS: AZITHROMYCIN 500 MG in DEXTROSE 5% 250 ML IV SCH (05:40)
[2021-08-13 08:53] LABS: Iron 49 mcg/dl (35-150); Total Iron Binding Capacity 245 mcg/dl (250-450)
[2021-08-13] MEDS: dexAMETHasone 6 MG in SYRINGE 0 ML IV SCH (09:29)
[2021-08-13] MEDS: ZINC SULFATE 220 MG CAPSULE PO SCH (09:30)
[2021-08-13] MEDS: CHOLECALCIFEROL 1,000 UNITS 25 MCG TAB PO SCH (09:30)
[2021-08-13] MEDS: POTASSIUM CHLORIDE CRTAB 20 MEQ TABCR PO SCH (09:31)
[2021-08-13] MEDS: PANTOprazole 40 MG TAB PO SCH (09:31)
[2021-08-13] MEDS: guaiFENesin 600 MG TABCR PO SCH (09:31)
--- NOTE | 2021-08-13 13:17 | Discharge Summary ---
Date of Service August 13, 2021 Admission HPI Per Admitting Provider The patient is a 70-year-old female with a past medical history including bilateral SNHL, status post right TKA, hyperlipidemia, GERD, hypertension, anxiety with depression and osteoarthritis. She presents with symptoms as noted above. Of note, the patient's main reason for coming to the emergency department was due to concerns of her daughters regarding her ongoing symptoms for the past 11 days. Abnormal laboratories: Hemoglobin 10.2, hematocrit 30.6, potassium 3.0, sodium 132, glucose 142, LDH 431, BNP 1299, albumin 2.1. Pulse ox on room air was 81%, that improved to 96% on 2 L nasal cannula. Chest x-ray/CT angiography chest PE protocol: No pulmonary emboli, significant multifocal pneumonia. Hepatosplenomegaly, fatty liver, moderate hiatal hernia. COVID-19 testing was positive. Principal Diagnosis acute hypoxic respiratory failure covid pneumonia discharge on home oxygen Discharge Exam The patient appeared improved Vital signs as documented. Lungs are unlabored still with rales but clearing Cardiac exam, Rhythm is regular.. No murmurs, rubs or gallops. Abdominal exam reveals normal bowel sounds, soft non tender, no masses Extremities are nonedematous and both pedal pulses are normal. Neurologic exam is alert and oriented, no focal loss of strength or sensation Skin is without bruises or rashes Psychologically is without concerns for anxiety or depression. Discharge Data Allergies Allergy/AdvReac Type Severity Reaction Status Date / Time sulfamethoxazole Allergy Intermediate Hives Verified 08/09/21 16:24 [From Bactrim] trimethoprim [From Bactrim] Allergy Intermediate Hives Verified 08/09/21 16:24 Consultations 08/09/21 17:23 ED Decision to Admit Stat Ordered Studies 08/09/21 14:14 CT angio chest PE protocol Stat Hospital Course (1) Pneumonia due to COVID-19 virus: COVID-19 pneumonia with hypoxia- Room air at rest 4 L with exertion dexamethasone 6 mg complete 10-day course by outpatient oral medication at pharmacy Has not required any additional nebulized treatments Azithromycin completed 4 days of therapy will last likely 8 days will discharge to complete the additional course guaifenesin extended release 1200 mg p.o. every 12 hours Patient encouraged to have good nutrition and consider vitamins at home family and patient understand she requires home oxygen with exertion (2) Hypoxia: (3) Acute hypokalemia: resolved (4) Depression: Continue sertraline (5) Sleep apnea: Resume outpatient regimen to treat her sleep apnea (6) Hypertension: resume enalapril (7) Hyperlipidemia: Continue atorvastatin (8) GERD (gastroesophageal reflux disease): Continue Dexilant/pantoprazole (9) Anemia: hgb is stable and iron was in normal range at the day of discharge Total Time Total Time Spent Total Time Spent (In Minutes): It required greater than 30 minutes to prepare this patient for discharge Discharge Plan Discharge Items Patient Disposition: Home - Self-Care Reason For Visit: COVID-19 PNEUMONIA Discharge Diagnosis: low blood oxygen level pneumonia due to covid infection Activity: Per Instructions section Activity Comment: slowly increase activity level Non-emergency contact: Primary Care Provider Call non-emergency contact if: you have any medication questions Follow-up/Referrals: Cheryl Campos MD [Primary Care Provider] - Diet: Regular Addtl Attending Provider Instructions: since the onset of your covid infection was more than 10 days ago, please home isolate until you have no covid symptoms for at least 2 days in a row. If you wish wear a mask around other who have not had the covid infection. please contact your primary care doctor for a video or telephone follow up with in a a week of dishcarge Your iron level was in normal range the day of discharge your hemoglobin level has been stable also Home Isolation COVID-19 Instructions The following information about Home Isolation is from the CDC Website: https://www.cdc.gov/coronavirus/2019-ncov/hcp/aojkxrbz-tpnjldk-kcwpot.html Stay home except to get medical care People who are mildly ill with COVID-19 are able to isolate at home during their illness. You should restrict activities outside your home, except for getting medical care. Do not go to work, school, or public areas. Avoid using public transportation, ride-sharing, or taxis. Separate yourself from other people and animals in your home People: As much as possible, you should stay in a specific room and away from other people in your home. Also, you should use a separate bathroom, if available. Animals: You should restrict contact with pets and other animals while you are sick with COVID-19, just like you would around other people. Although there have not been reports of pets or other animals becoming sick with COVID-19, it is still recommended that people sick with COVID-19 limit contact with animals until more information is known about the virus. When possible, have another member of your household care for your animals while you are sick. If you are sick with COVID-19, avoid contact with your pet, including petting, snuggling, being kissed or licked, and sharing food. If you must care for your pet or be around animals while you are sick, wash your hands before and after you interact with pets and wear a face mask. Call ahead before visiting your doctor If you have a medical appointment, call the healthcare provider and tell them that you have or may have COVID-19. This will help the healthcare providers office take steps to keep other people from getting infected or exposed. Wear a face mask You should wear a face mask when you are around other people (e.g., sharing a room or vehicle) or pets and before you enter a healthcare providers office. If you are not able to wear a face mask (for example, because it causes trouble breathing), then people who live with you should not stay in the same room with you, or they should wear a face mask if they enter your room. Cover your coughs and sneezes Cover your mouth and nose with a tissue when you cough or sneeze. Throw used tissues in a lined trash can. Immediately wash your hands with soap and water for at least 20 seconds or, if soap and water are not available, clean your hands with an alcohol-based hand pulmonary fellow that contains at least 60% alcohol. Clean your hands often Wash your hands often with soap and water for at least 20 seconds, especially after blowing your nose, coughing, or sneezing; going to the bathroom; and before eating or preparing food. If soap and water are not readily available, use an alcohol-based hand pulmonary fellow with at least 60% alcohol, covering all surfaces of your hands and rubbing them together until they feel dry. Soap and water are the best option if hands are visibly dirty. Avoid touching your eyes, nose, and mouth with unwashed hands. Avoid sharing personal household items You should not share dishes, drinking glasses, cups, eating utensils, towels, or bedding with other people or pets in your home. After using these items, they should be washed thoroughly with soap and water. Clean all high-touch surfaces everyday High touch surfaces include counters, tabletops, doorknobs, bathroom fixtures, toilets, phones, keyboards, tablets, and bedside tables. Also, clean any surfaces that may have blood, stool, or body fluids on them. Use a household cleaning spray or wipe, according to the label instructions. Labels contain instructions for safe and effective use of the cleaning product including precautions you should take when applying the product, such as wearing gloves and making sure you have good ventilation during use of the product. Monitor your symptoms Seek prompt medical attention if your illness is worsening (e.g., difficulty breathing).Beforeseeking care, call your healthcare provider and tell them that you have, or are being evaluated for, COVID-19. Put on a face mask before you enter the facility. These steps will help the healthcare providers office to keep other people in the office or waiting room from getting infected or exposed. Ask your healthcare provider to call the local or state health department. Persons who are placed under active monitoring or facilitated self- monitoring should follow instructions provided by their local health department or occupational health professionals, as appropriate. When working with your local health department check their available hours. If you have a medical emergency and need to call 911, notify the dispatch personnel that you have, or are being evaluated for COVID-19. If possible, put on a face mask before emergency medical services arrive. Discontinuing home isolation Patients with confirmed COVID-19 should remain under home isolation precautions until the risk of secondary transmission to others is thought to be low. The decision to discontinue home isolation precautions should be made on a [id number] basis, in consultation with healthcare providers and state and local health departments. Pending Studies at Discharge: Yes Stand-Alone Forms: My [employer], Smoking Cessation Medications and DC Order Prescriptions: New guaifenesin [Mucinex] 600 mg Tablet Extended Release 12hr 1,200 mg PO Q12 Qty: 20 RF: 0 (DME) Oxygen Home Liters Per Minute See Rx Instructions .Route Qty: 4 RF: 0 dexamethasone [Decadron] 6 mg tablet 6 mg PO DAILY Qty: 6 RF: 0 Continued meloxicam 15 mg tablet 15 mg PO DAILY PRN (Reason: pain) Qty: 30 RF: 2 atorvastatin [Lipitor] 40 mg Tablet 40 mg PO HS RF: 0 enalapril maleate 10 mg Tablet 10 mg PO QAM RF: 0 sertraline 100 mg Tablet 100 mg PO HS RF: 0 Dexilant 60 mg Capsule,Biphase Delayed Releas 60 mg PO QAM RF: 0 cholecalciferol (vitamin D3) [Vitamin D3] 5,000 unit Tablet 5,000 unit PO QAM RF: 0 Discharge Orders: Discharge Order (Routine); Ordered 08/13/21 Ordered By: Yvan Ashley Admission Data Admit Date/Time: 08/09/21 20:02 Attending Provider: Yvan Ashley Admit Provider: Refugio Decker Primary Care Provider: Cheryl Campos Other Providers: Yvan Ashley Other Interventions: Discharge Summary Assessment (RN) Last Done: 08/13/21 11:33 Coding Level of Care Code D/C DAY MANAGEMENT >30 MINS Diagnoses Pneumonia due to COVID-19 virus U07.1; J12.82 Hypoxia R09.02 Acute hypokalemia E87.6 Depression F32.9 Sleep apnea G47.30 Hypertension I10 Hyperlipidemia E78.5 GERD (gastroesophageal reflux disease) K21.9 Anemia D64.9
== END 2021-08-13 13:39 | disposition home or self-care (01) | DRG 177 ==
LOC: ED 13:43 → SUATTDRO 20:02 → 2W 20:02
DX: G47.30 Sleep apnea, unspecified; K21.9 Gastro-esophageal reflux disease without esophagitis; E78.5 Hyperlipidemia, unspecified; U07.1 COVID-19; J12.82 Pneumonia due to coronavirus disease 2019; F32.A Depression, unspecified; I10 Essential (primary) hypertension; Z98.51 Tubal ligation status; Z82.49 Family history of ischemic heart disease and other diseases of the circulatory system; E87.6 Hypokalemia; Z83.3 Family history of diabetes mellitus

== ENCOUNTER 2022-03-02 08:07 | Observation (INO) ==
--- NOTE | 2022-01-29 13:39 | PAT Medication Instructions ---
Medication Instructions Date of Service January 29, 2022 Home Medications Medication Instructions Recorded meloxicam 15 mg tablet 15 mg PO DAILY PRN #30 tab 02/13/20 Oxygen Home #4 l 08/13/21 atorvastatin 40 mg tablet (Lipitor) 40 mg PO HS cholecalciferol (vitamin D3) 125 mcg (5,000 unit) tablet (Vitamin D3) 5,000 unit PO QAM dexlansoprazole 60 mg capsule,biphase delayed release (Dexilant) 60 mg PO QAM enalapril maleate 10 mg tablet 10 mg PO QAM sertraline 100 mg tablet 100 mg PO HS meloxicam 15 mg tablet 15 mg PO DAILY PRN ASK your surgeon for instructions meloxicam 15 mg tablet 15 mg PO DAILY PRN DO NOT take the morning of surgery cholecalciferol (vitamin D3) 125 mcg (5,000 unit) tablet (Vitamin D3) 5,000 unit PO QAM enalapril maleate 10 mg tablet 10 mg PO QAM Take morning of surgery With a small sip of water, OTHERWISE NOTHING TO EAT OR DRINK AFTER MIDNIGHT: dexlansoprazole 60 mg capsule,biphase delayed release (Dexilant) 60 mg PO QAM Take evening before surgery atorvastatin 40 mg tablet (Lipitor) 40 mg PO HS sertraline 100 mg tablet 100 mg PO HS Other Notes If you have any questions please call us at [phone] or [phone] or [phone] or [phone]
--- NOTE | 2022-02-03 10:08 | Anesthesiology Consultation ---
Date of Service February 03, 2022 Assessment & Plan (1) Encounter for pre-operative examination: Chart Review Chart Review: Pending: Refer to Additional Notes / Consult section (pending PCP response in regards to murmur and possible carotid bruit, preop Covid testing results ) and Patient NOT seen in Pre Admission Testing -Will send note to PCP re: murmur and faint carotid bruit- requesting updated ECHO and carotid doppler if not done previously Per PAT appt on 02/03/22, patient denies any recent travel or large group activities. No known Covid positive exposures or Covid related symptoms. No known Covid infection in the past 90 days. Pt is NOT vaccinated for Covid. Preop Covid testing scheduled 02/26/22= will await results. Educated on importance of self quarantining, social distancing and wearing mask in public for the patient one week prior to surgery and after Covid testing done Teaching & Discussion Pre-Anesthesia Teaching/Discussion Notes: Instructed NPO after midnight before surgery,except medications with 15 cc of water. Medication instructions provided according to the PAT guidelines. History Surgery Operation Date: 03/02/22 08:50 Proposed Procedures p Left Total Knee Arthroplasty - Tod Burden MD Height/Weight Height: 5 ft 5 in Weight: 102.3 kg Allergies Allergy/AdvReac Type Severity Reaction Status Date / Time sulfamethoxazole Allergy Intermediate Hives Verified 01/29/22 12:18 [From Bactrim] trimethoprim [From Bactrim] Allergy Intermediate Hives Verified 01/29/22 12:18 Medications Home Medications Medication Instructions Recorded Confirmed Last Taken atorvastatin 40 mg tablet (Lipitor) 40 mg PO 12/08/18 01/29/22 12/25/18 20:00 cholecalciferol (vitamin D3) 125 5,000 unit PO [facility] 12/08/18 01/29/22 12/25/18 09:00 mcg (5,000 unit) tablet (Vitamin D3) dexlansoprazole 60 mg 60 mg PO [facility] 12/08/18 01/29/22 12/25/18 09:00 capsule,biphase delayed release (Dexilant) enalapril maleate 10 mg tablet 10 mg PO [facility] 12/08/18 01/29/22 12/25/18 09:00 sertraline 100 mg tablet 100 mg PO 03/01/29/22 12/25/18 21:00 meloxicam 15 mg tablet 15 mg PO DAILY PRN #30 tab 02/13/20 01/29/22 Unknown Oxygen Home #4 l 08/13/21 10/16/21 Unknown Past Medical History Medical History Anxiety and depression Fatty liver GERD (gastroesophageal reflux disease) Well controlled and stable History of COVID-19 08/09/21> PNX AND HOSPITALIZATION *RESOLVED Hyperlipidemia Hypertension Osteoarthritis Sleep apnea CPAP Exercise / Class Metabolic Activity II 4-5 Yardwork/Stairs/Walk up hill (one flight of stairs - no chest pain or SOB ) Past Family History Family History Mother Family history of diabetes mellitus Hypertension Father Hearing loss Cancer Other No family history of adverse response to anesthesia No family history of bleeding disorder Past Surgical History Surgical History History of bilateral tubal ligation History of cataract surgery RT/LEFT History of colonoscopy History of dilatation and curettage History of esophagogastroduodenoscopy (EGD) History of laparoscopy History of total abdominal hysterectomy and bilateral salpingo-oophorectomy History of total knee replacement RT Past Anesthesia History No Hx of Anesthesia Complications and No Family Hx of Anesthesia Complications History of PONV No Hx of PONV and No Hx of Motion Sickness Social History Smoking Status: Never smoker Hx Alcohol Use: No substance use type: does not use Review of Systems Patient denies chest pain, shortness of breath, dyspnea on exertion, cough, wheezing, palpitations. No hx of seizures, stroke, MO. No hx of blood clots or blood transfusions Physical Exam Vital Signs VITALS BP 132/76 P 75 TEMP 98.3 SP02 95% RESP 16 Constitutional no acute distress ENMT Mouth: no TMJ clicking Thyromental Distance: < 3.5 Finger Breadths (3.0) Mallampati Class: III Neck neck extension not limited Respiratory normal respiratory effort; no respiratory distress Auscultation: no wheezes Mild course breath sounds Cardiovascular Rate/Rhythm: regular rate and regular rhythm Heart Sounds: + murmur (II-III/ murmur ) Vessels: + carotid bruit (faint bruit on left side vs murmur radiation ) Musculoskeletal Spine: no pain with cervical ROM Extremities: extremities normal to inspection Psychiatric Orientation: alert Lab Results Anesthesia Preop Results Results Anesthesia Widget: WBC 5.42 K/uL (4.8-10.8) 02/03/22 Hgb 11.3 g/dL (12.0-16.0) L 02/03/22 Hct 35.3 % (37-47) L 02/03/22 Plt 239 K/uL (130-400) 02/03/22 Na 139 mmol/L (136-145) 02/03/22 K 4.6 mmol/L (3.5-5.1) 02/03/22 Cl 102 mmol/L (98-107) 02/03/22 CO2 31 mmol/L (21-32) 02/03/22 BUN 22 mg/dl (6-23) 02/03/22 Creat 1.06 mg/dl (0.6-1.2) 02/03/22 Glucose Level 89 mg/dl (70-99(Fasting)) 02/03/22 PT 10.3 Seconds (9.0-12.0) 02/03/22 PTT 24.8 Seconds (21.0-31.0) 02/03/22 INR 1.0 (0.9-1.1) 02/03/22 Blood Type A Negative 02/03/22 Antibody Screen NEGATIVE 02/03/22 Testing Laboratory Results *Anemia chronic since 2018 (improved from previous) Electrocardiogram Date: 08/09/21 Findings: + NSR @ (83bpm ) Possible left atrial enlargement. RBBB. LVH When compared to EKG from December 08, 2018- RBBB is now present Chest X-Ray Date: 02/03/22 FINDINGS: The cardiac silhouette is enlarged. Interstitial coarsening of the mid to lower lung zones. No pneumothorax, large pleural effusion or lobar airspace consolidation. The bones of the chest appear grossly intact. IMPRESSION: 1. There is mild bibasilar interstitial coarsening which may be secondary to atelectasis or scarring. 2. Cardiomegaly. Other Testing Chest CTA 08/09/21= No pulmonary emboli. Extensive subpleural predominant groundglass and consolidative opacities compatible with viral pneumonia. Small pleural effusions. Hepatosplenomegaly with hepatic steatosis. Moderate hiatal hernia. (Pt diagnosed with Covid at time of chest CTA)
--- NOTE | 2022-02-26 18:52 | History and Physical Report ---
DATE OF ADMISSION: 03/02/2022 CHIEF COMPLAINT: Left knee pain. HISTORY OF PRESENT ILLNESS: This is a 71-year-old female who presents for surgical treatment of her left knee. She is well known to me from a previous right knee replacement 3 years ago. She has done well from this. We have been treating her left knee conservatively over time with injections, which have become less successful over time. The last shot really did not help much at all. She describe d global pain in the knee. It is increased with weightbearing. The more she is up and on it, the mo re it hurts. She would like to have her knee fixed. PAST MEDICAL HISTORY: Significant for: 1. Sleep apnea on CPAP machine. 2. Anxiety/depression. 3. Arthritis. 4. Gastroesophageal reflux disease. 5. Mild obesity with BMI of 38. PAST SURGICAL HISTORY: Include: 1. Tubal ligation. 2. EGD. 3. Laparoscopy. 4. Abdominal hysterectomy. 5. Right total knee replacement done on 12/26/2018. ALLERGIES: BACTRIM, SULFA. CURRENT MEDICATIONS: 1. Lipitor. 2. Vitamin D. 3. Dexilant. 4. Enalapril. 5. Mucinex. 6. Meloxicam. 7. Sertraline. 8. Home oxygen. SOCIAL HISTORY: A 71-year-old female. She is . She does not smoke. No alcohol intake. FAMILY HISTORY: Noncontributory. REVIEW OF SYSTEMS: Negative for diabetes, neurologic problem, vascular problems or bleeding disorder s. No chest pain or shortness of breath. No history of DVT or PE. No known bleeding problems. PHYSICAL EXAMINATION: GENERAL: Shows a pleasant middle-aged female. Looks to be in pretty good health. HEENT: Benign. NECK: Supple. No lymphadenopathy. LUNGS: Clear to auscultation. HEART: Regular rate and rhythm. ABDOMEN: Soft, nontender, nondistended. EXTREMITIES: Grossly neurovascularly intact except as follows. Examination of the left knee reveals the patient walks independently. She does limp on this left delta e. She has moderate soft tissue envelope. Fairly neutral alignment to her knee. Range of motion is about 5 degrees short of full extension to 120 degrees of flexion. No instability. No pain with hi p motion. Examination of the right knee reveals well-healed incision. Knee alignment is anatomic. Range of mo tion is 0 to 120. X-RAYS: X-rays of the left knee were reviewed. It shows advanced left knee tricompartment DJD. She had complete loss of medial joint space. A little bit of tibial femoral subluxation. She has osteo phytes in all 3 compartments. The right knee replacement looks to be in good position. ASSESSMENT: A 71-year-old female 3 years out from right knee replacement with advanced left knee deg enerative joint disease. She has failed conservative treatment. She does have additional comorbidit ies including obesity, anxiety, sleep apnea, gastroesophageal reflux disease. She has been seen by h er medical doctor and cleared medically. She had an echo and cleared by Cardiology. PLAN: We will plan on proceeding with a knee replacement. The risks and benefits were explained. S he will hold her Mobic preoperatively. She is planning to be discharged to home using [facility]. Job ID: [id number]
[~2022-03-02 08:07] MED LIST changes: +BUPIVACAINE 0.25% 30 ML VIAL ONE; -CEFAZOLIN 2000MG 2,000 MG/15 ML SYR IV SCH; +CeleBREX 200 MG CAP PO SCH; +DEXAMETHASONE SOD INJ 4 MG/ML VIAL ONE; +EPINEPHrine INJ 1 MG/ML AMP ONE; -GABAPENTIN 300 MG PO SCH; -LIDOCAINE HCL 2% 2 ML VIAL/AMP(20MG/ML) INFIL ONE; -METOCLOPRAMIDE HCL 10 MG TABLET PO SCH; -MIDAZOLAM HCL 1 MG/ML 2ML VIAL ONE; -PHENYLEPHRINE 100MCG/ML 5ML SYR ONE; -PROPOFOL IV EMULSION 10 MG/ML 20 ML VIAL IV ONE; -ROPIVACAINE 0.5% 5 MG/ML 30 ML VIAL ONE; -SCOPOLAMINE 1.5 MG TDSY TD SCH; +TRANEXAMIC ACID 1,000 MG **IV Intra-op IV SCH; -TRANEXAMIC ACID 1,000 MG **IV Pre-op IV SCH; +ceFAZolin 2000MG 2,000 MG/15 ML SYR IV SCH; -ePHEDrine sulfate 50 MG/ML AMP ONE; -fentaNYL citrate 100 MCG/2 ML VIAL ONE
--- NOTE | 2022-03-02 08:55 | History & Physical Bridge Note ---
Date of Service March 02, 2022 History & Physical Bridge Note I have examined the patient, reviewed the History & Physical and in the interval since the performance of the History & Physical I have noted the following changes of clinical significance: no changes noted
[2022-03-02] MEDS: LR 500ML BOLUS, THEN 15ML/HR IV SCH ×2 (09:03→11:15)
[2022-03-02] MEDS ORDERED: MIDAZOLAM HCL 1 MG/ML 2ML VIAL ONE (09:14)
[2022-03-02] MEDS ORDERED: fentaNYL citrate 100 MCG/2 ML VIAL ONE (09:14)
[2022-03-02] MEDS ORDERED: SODIUM CHLORIDE 0.9% PF 50 ML VIAL ONE (11:26)
[2022-03-02] MEDS ORDERED: BUPIVACAINE/EPINEPHRINE 0.25% 1:200,000 30 ML VIAL ONE (11:26)
[2022-03-02] MEDS ORDERED: BUPIVACAINE LIPOSOME 1.3% 266 MG/20 ML VIAL ONE (11:26)
[2022-03-02] MEDS ORDERED: ATROPINE SULFATE 0.1 MG/ML 10ML SYR IV PRN (11:33)
[2022-03-02] MEDS ORDERED: ONDANSETRON INJ 2 MG/ML 2 ML VIAL IV PRN ×2 (11:33→14:17)
[2022-03-02] MEDS ORDERED: ePHEDrine sulfate 50 MG/ML AMP IV PRN (11:33)
[2022-03-02] MEDS ORDERED: PROPOFOL IV EMULSION 10 MG/ML 20 ML VIAL IV ONE ×2 (11:35→12:38)
--- NOTE | 2022-03-02 13:20 | Operative Report ---
PG Post Operative Report Pre & Post Diagnosis Operation Date: 03/02/22 10:40 Pre-Op Diagnosis: Left Knee Advanced Degenerative Joint Disease Post-Op Diagnosis: Left Knee Advanced Degenerative Joint Disease I identified the patient and participated in the time-out.: Yes Procedure Operation Date: 03/02/22 10:40 Actual Procedures p Left Total Knee Arthroplasty(Left) - Tod Burden MD Surgeon Tod Burden MD Ar[employer] Operator Arjun Gamez PA-C Estimated Blood Loss 50 Findings Consistent with Post-Op Diagnosis Operative findings revealed advanced left knee DJD with grade 4 changes pretty extensively throughout the medial and patellofemoral compartments. She had a varus deformity to her knee. Specimens Left knee sent for pathology. Drains None Anesthesia Type Spinal MAC Complications none Disposition Accompanied Patient To Recovery: No Indications Patient is a 71-year-old female is had a long history of knee problems. She has she had a right knee replaced 3 years ago and is done well from this. She developed progressive increased pain discomfort in her left knee. She failed conservative measures. She elected proceed with total knee arthroplasty. Description of Procedure Operative implants consisted of: 1 Biomet Vanguard size 65 left posterior stabilized femoral component. 2. Biomet size 71 tibial tray. 3. 10 mm posterior stabilized polyethylene insert. 4. 31 x 8 all Paller patella. The patient was taken to the operating, identified, and placed on the operating table supine position protectors were properly padded. IV antibiotics tried by anesthesia team. A spinal anesthetic and abductor canal block had provided holding area. Marie catheter was placed in sterile fashion. A left thigh turn was then placed in the left lower extremities and prepped and draped in usual sterile fashion. The left leg was elevated exsanguinated with use of an Esmarch in terms playset 300 mmHg. An anterior approach to the left knee was then performed to longitudinal incision centered over the patella. Sharp dissection was carried through subcutaneous tissue down the extensor mechanism. A medial parapatellar arthrotomy incision was made. Some subperiosteal dissection was carried out medially. The fat pad was resected from Neath patella tendon. Lateral patellofemoral ligament was released. Patella subluxated laterally knee was flexed. The osteophytes were taken off distal femur. ACL and PCL then released from the distal femur the tibia subluxated anteriorly. The external tibial alignment jig was then placed in the interface the tibia and adjusted 14 mm medially. Proximal tibial cut was made remove about a millimeter or 2 of bone from most deficient aspect medial tibial plateau. Some osteophytes taken off medially. Tibia sized to a size 71. Attention drawn the femur. The distal femur examined the sharp drill bit intramedullary canal was suction. A left 5 degree valgus cutting guide was placed. The distal femoral cutting block was pinned in place. Distal femoral cut was made to take an additional 3 mm bone off distal femur. The femur was then sized to a size 65. The AP cutting block was pinned parallel to the epicondylar axis which was 5 degrees of external rotation. The anterior cut, anterior chamfer, posterior cut, posterior chamfer cuts were made. The box cutting guide was then placed in in a just slight lateral box cut was made. The knee was flexed. The remnants of the medial and lateral menisci were excised. The osteophytes taken off the pos terior aspect the femur. Trial femoral component was placed. Tibial tray was pinned in maximum external rotation and the drill and stem punch were used to create defect in proximal tibia for the tibial tray. Knee was then trialed and the 10 mm insert fit most appropriately. Attention drawn the patella. The patella was cleaned of all soft tissue. Patella thickness measured 22 mm in thickness and was cut down to 14. Was sized to a size 31 patella. The lug holes were drilled for 31 patella. The lateral osteophyte was removed. Patella button was placed. Knee was taken through range of motion and the patella tracked nicely with no thumbs test. Attention drawn to place the permanent components. Nupathe all trial components were removed. Bone plug was placed in the distal femur limit blood loss. Double batch Palacos G cement was mixed. A Biomet Vanguard size 65 left posterior stabilized femoral component, a size 71 tibial tray, 10 mm posterior stabilized polyethylene insert, and a 31 x 8 all Paller patella then cemented in place. The knee was brought out into full extension total cement hardened. Final cement check was then performed. The pericapsular tissues were injected with total 100 cc of combination of 20 cc of Exparel, 30 cc normal saline, 50 cc of quarter percent Marcaine with epinephrine. Patient did receive 1 g tranexamic acid. The tourniquet was then let down for final turn time 52 minutes. Hemostasis reduced electrocautery. Extensor mechanism closed with combination 1 PDS suture #1 Vicryl suture in a [id number] fashion. Extensor mechanism checked found to be intact the subcutaneous tissue then closed with 2 Dexon suture in buried interrupted fashion skin was closed skin yvrose. Leg was then cleaned and dried and a sterile dressing was Xeroform, 4 x 4's, sterile cast padding, [place] bandage were applied. Patient then transferred to the recovery room in stable condition. Patient tolerated the procedure well and there were no complications. Arjun Gamez, my physician certified registered dental assistant, was present for the entire procedure. His assistance was essential and required for appropriate patient positioning, prepping and draping, surgical exposure, performing the technical details of the operation, placement the implants, closure of the wound, and placement of the sterile bandage. I attest to the content of the Intraoperative Record and any orders documented therein. Any exceptions are noted below.
--- NOTE | 2022-03-02 13:46 | XRay Report ---
XR knee LT 1 or 2V routine CLINICAL HISTORY: Surgical Post Op. Status post total knee replacement COMPARISON STUDY: 11/15/2016 TECHNIQUE: 2 left knee views FINDINGS: The patient is status post total knee replacement. The prosthetic components are in anatomi c alignment with no acute abnormality seen. Air is present within the soft tissues from the procedure . Skin yvrose are seen anteriorly. IMPRESSION: 1. Status post total knee replacement. ACT 112: Negative or not required by law. Electronically signed by: Jan Amin M.D. 03/02/2022 1:44 PM
[2022-03-02] MEDS ORDERED: SODIUM CHLORIDE 0.9% 1000ML 1,000 ML IV SCH (14:17)
[2022-03-02] MEDS ORDERED: METOCLOPRAMIDE HCL INJ 5 MG/ML 2 ML VIAL IV PRN (14:17)
[2022-03-02] MEDS ORDERED: NALOXONE HCL 0.4 MG/1 ML VIAL/CARP IV PRN (14:17)
[2022-03-02] MEDS ORDERED: MAGNESIUM HYDROXIDE SUSP 30 ML UDC PO PRN (14:17)
[2022-03-02] MEDS ORDERED: ALUMINUM/MAGNESIUM SUSP 30 ML UDC PO PRN (14:17)
[2022-03-02] MEDS ORDERED: oxyCODONE HCL IR 5 MG TAB (IMMEDIATE RELEASE) PO PRN (14:17)
[2022-03-02] MEDS ORDERED: bisacodyL 10 MG SUPP PR PRN (14:17)
[2022-03-02] MEDS ORDERED: HYDROmorphone INJ 0.5 MG/0.5 ML SYR IV PRN (14:17)
--- NOTE | 2022-03-02 14:31 | Anesthesiology Progress Note ---
Date of Service March 02, 2022 Anesthesia Post Procedure Vital Signs Vital Signs: Temp Pulse Pulse Resp BP Pulse Ox 03/02/22 14:00 36.6 C 68 19 159/87 H 96 03/02/22 13:50 36.6 C 67 21 162/68 H 96 03/02/22 13:40 70 21 165/72 H 96 03/02/22 13:30 78 16 151/63 H 100 03/02/22 13:20 36.3 C L 79 25 H 157/81 H 100 03/02/22 13:11 36.3 C L 86 14 126/55 L 95 03/02/22 08:39 37.1 C 66 16 186/85 H 97 Transfer of Care Handoff Completed per policy Notes Mental Status: alert / awake / arousable Patient Amnestic to Procedure: Yes Nausea / Vomiting: adequately controlled Pain: adequately controlled Airway Patency, RR, SpO2: stable & adequate BP & HR: stable & adequate Hydration State: stable & adequate Neuraxial Anesthesia: was administered and sensory block is resolving Anesthetic Complications: no major complications apparent and Pt Satisfied with anesthetic care
[2022-03-02] MEDS: fentaNYL citrate 100 MCG/2 ML VIAL IV PRN ×2 (14:38→14:43)
[2022-03-02] MEDS: ACETAMINOPHEN 500 MG TAB PO SCH ×2 (15:35→23:06)
[2022-03-02] MEDS: KETOROLAC TROMETHAMINE 15 MG/ML VIAL IV SCH ×2 (15:36→20:50)
[2022-03-02] MEDS: ASCORBIC ACID 500 MG TAB PO SCH (16:31)
[2022-03-02] MEDS ORDERED: TRANEXAMIC ACID / 0.7% NACL 1,000 MG/100 ML BAG IV SCH (19:15)
[2022-03-02] MEDS: DOCUSATE SODIUM 100 MG CAP PO SCH (20:48)
[2022-03-02] MEDS: ASPIRIN 81 MG ECTAB PO SCH (20:48)
[2022-03-02] MEDS ORDERED: SERTRALINE HCL 100 MG TABLET PO SCH (21:00)
[2022-03-02] MEDS ORDERED: ATORVASTATIN 40 MG TAB PO SCH (21:00)
[2022-03-02] MEDS ORDERED: SENNA 8.6 MG TAB PO SCH (21:00)
[2022-03-02] MEDS: ceFAZolin 2000MG 2,000 MG/15 ML SYR IV SCH (21:15)
[2022-03-03] MEDS: KETOROLAC TROMETHAMINE 15 MG/ML VIAL IV SCH ×3 (03:55→15:30)
[2022-03-03] MEDS: ceFAZolin 2000MG 2,000 MG/15 ML SYR IV SCH (03:56)
[2022-03-03] MEDS: ACETAMINOPHEN 500 MG TAB PO SCH ×2 (05:46→14:35)
[2022-03-03 06:23] LABS: Hematocrit (blood only) 32.5 % (37-47); Hemoglobin 10.8 g/dL (12.0-16.0); Mean Corpuscular Hgb Conc 33.2 g/dL (32-36); Mean Corpuscular Volume 81.3 fL (80-100); Platelet Count 255 K/uL (130-400); RDW Coefficient of Variation 14.5 % (11.5-14.5); RDW Standard Deviation 43.1 fL (36.4-46.3); White Blood Count 10.93 K/uL (4.8-10.8)
[2022-03-03 06:46] LABS: BUN Creatinine Ratio 22.4 (10-20); Calcium 9.4 mg/dl (8.5-10.1); Creatinine Clr Calc Pharmacy 71.8 ml/min; Est GFR (African American) 80.5 ml/min; Est GFR (Non-African American) 69.4 ml/min; Potassium 4.3 mmol/L (3.5-5.1)
[2022-03-03] MEDS ORDERED: dexAMETHasone 10 MG in SYRINGE 0 ML IV SCH (08:00)
[2022-03-03] MEDS: ASPIRIN 81 MG ECTAB PO SCH (08:02)
[2022-03-03] MEDS: DOCUSATE SODIUM 100 MG CAP PO SCH (08:03)
[2022-03-03] MEDS: ASCORBIC ACID 500 MG TAB PO SCH (08:04)
[2022-03-03] MEDS ORDERED: MULTIVITAMIN TAB PO SCH (09:00)
[2022-03-03] MEDS ORDERED: PANTOprazole 40 MG TAB PO SCH (09:00)
[2022-03-03] MEDS ORDERED: ENALAPRIL MALEATE 10 MG TAB PO SCH (09:00)
[2022-03-03] MEDS ORDERED: CHOLECALCIFEROL 5,000 UNITS 125 MCG TAB PO SCH (09:00)
--- NOTE | 2022-03-03 14:29 | Orthopedic Progress Note ---
Date of Service March 03, 2022 Assessment & Plan (1) Status post total left knee replacement: She was seen and examined by Dr. Burden. We will discharge her home today with home health care set up. Give dressings for dressing change tomorrow. Aspirin BID for dvt prophylaxis. Pain controlled. Continue PT/OT-wbat. Subjective .71 year old patient POD #1 from left tka. Doing pretty well. Pain is controlled at this time. No new complaints. She wants to go home today Review of Systems All systems reviewed & are unremarkable except as noted in HPI & below. Physical Exam .alert and oriented. VSS. NAD Left leg: dressing clean and intact. Able to dorsiflex and plantarflex. NVI Results & Data Results & Data Laboratory Results . Diagnostic Findings . PG Care Time/CCT Total # of Minutes Spent Total Time Spent with Patient: Total time spent is greater than 50% in coordination of care (as documented) at patient's floor/unit and/or counseling patient: Coding Level of Care Code 76123 Post Operative Follow-Up Diagnoses Status post total left knee replacement Z96.652
--- NOTE | 2022-03-05 06:39 | Discharge Summary ---
Date of Service March 05, 2022 Discharge Data Procedures Performed Operation Date: 03/02/22 10:40 Actual Procedures p Left Total Knee Arthroplasty(Left) - Tod Burden MD Hospital Course (1) Status post total left knee replacement: 71 year old patient admitted on 03/02/22 and underwent total knee arthroplasty. She tolerated the procedure well and there were no complications. Transferred to the PACU post op and later to the orthopedic floor for further care. She was given ancef for antibiotic prophylaxis. She was also given KALEE stockings, SCDs, and aspirin for DVT prophylaxis. Hemoglobin, hematocrit, and vital signs were monitored during her hospital stay and remained stable. Did not require any blood transfusions. There were no complications during her hospital stay. By post op day #1 the patient was tolerating a regular diet, pain was reasonably controlled with oral pain medicine, and she was participating in physical therapy. On post op day #1 the patient was discharged home and set up with home health care. She was given printed discharge instructions including prescriptions for extra strength tylenol, aspirin, toradol, zofran, and oxycodone. Continue physical therapy, weight bearing as tolerated. Continue KALEE stockings. Follow up approximately 2 weeks post op or sooner if there are problems or concerns. Coding Level of Care Code None Diagnoses Status post total left knee replacement Z96.652
== END 2022-03-03 16:08 | disposition home health service (06) ==
LOC: PACUINP 08:07 → ASU 08:07 → 3N 15:03